=== PATIENT | male | born 1940 | race Caucasian/White ===

== ENCOUNTER 2016-10-03 15:52 | Observation (INO) | payer OTHER ==
[~2016-10-03] VITALS: Ht 172.7 cm; Wt 95.8 kg
[2016-10-03 16:28] LABS: BASO % 0.2 %; BASO ABS # 0.02 K/uL (0-0.2); COMPLETE YES; EOS % 2.5 %; IG% 0.5 %; LYMPH % 10.5 %; LYMPH ABS # 0.88 K/uL (1.2-3.4); MEAN CELL VOLUME 91.7 fL (80-100); MEAN CORPUSCULAR HEMOGLOBIN 30.6 pg (25-34); MEAN CORPUSCULAR HGB CONC 33.4 g/dl (32-36); MEAN PLATELET VOLUME 11.7 fL (7.4-10.4); MONO % 8.7 %; NEUT % 77.6 %; PLATELET COUNT 143 K/uL (130-400)
[2016-10-03 16:39] LABS: INR 1.1 (0.9-1.1); PROTHROMBIN TIME (PATIENT) 11.4 SECONDS (9.0-12.0)
[2016-10-03 16:46] LABS: ALT/SGPT 44 U/L (12-78); BLOOD UREA NITROGEN 17 mg/dl (7-18); BUN/CREATININE RATIO 10.1 (10-20); CALCIUM 9.2 mg/dl (8.5-10.1); CARBON DIOXIDE 25 mmol/L (21-32); CHLORIDE 105 mmol/L (98-107); GLUCOSE 109 mg/dl (70-99); MAGNESIUM 2.3 mg/dl (1.8-2.4); POTASSIUM 4.2 mmol/L (3.5-5.1); SODIUM 140 mmol/L (136-145)
[2016-10-03 16:49] LABS: ALKALINE PHOSPHATASE 83 U/L (45-117); AST/SGOT 30 U/L (15-37); PHOSPHORUS 2.7 mg/dl (2.5-4.9)
--- NOTE | 2016-10-03 16:49 | DIAGNOSTIC IMAGING REPORT ---
CT SCAN OF THE BRAIN WITHOUT IV CONTRAST CLINICAL HISTORY: Syncope. Generalized weakness. COMPARISON STUDY: No priors. TECHNIQUE: Unenhanced axial CT scan of the brain is performed from the vertex to the skull base. The examination is degraded by motion artifact. CT DOSE: 537.48 mGy.cm FINDINGS: Brain parenchyma: There are age-related involutional changes noting moderate patchy subcortical and periventricular microangiopathic change. Chronic lacunar infarcts are present within the basal ganglia bilaterally. There is no hemorrhage, mass effect, or evidence of acute territorial ischemia by CT criteria. Schulz-white matter is preserved. No extra-axial fluid collection is seen. Ventricles, sulci, cisterns: Prominent secondary to involutional change. Intracranial vasculature: There is atherosclerotic calcification of the cavernous carotid and vertebral arteries. Calvarium: The skeletal structures are osteopenic. No depressed calvarial fracture is seen. There are postoperative changes from occipital craniectomy. Sinuses and mastoids: The visualized paranasal sinuses are clear. The mastoid air cells are well pneumatized. Orbits: The bony orbits are grossly intact. IMPRESSION: 1. Senescent changes as above with no hemorrhage, mass effect, or evidence of acute territorial ischemia by CT criteria. 2. There are postoperative changes from suboccipital craniectomy. Electronically signed by: Jhon Suazo M.D. 10/03/2016 4:47 PM Dictated Date/Time: 10/03/2016 4:44 PM
--- NOTE | 2016-10-03 16:56 | DIAGNOSTIC IMAGING REPORT ---
SINGLE VIEW CHEST CLINICAL HISTORY: Generalized weakness. FINDINGS: An AP, portable, upright chest radiograph is obtained. No prior studies are available for comparison at the time of dictation. The examination is degraded by portable technique and patient rotation. The heart is top normal for projection and there is atherosclerotic calcification of the thoracic aorta. The pulmonary vasculature is noncongested. There is elevation right hemidiaphragm and bibasilar atelectasis. No airspace consolidation or pleural effusion is identified. No pneumothorax is seen. The skeletal structures are osteopenic. The bony thorax is grossly intact. IMPRESSION: No acute cardiopulmonary abnormality. Electronically signed by: Jhon Suazo M.D. 10/03/2016 4:54 PM Dictated Date/Time: 10/03/2016 4:54 PM
[2016-10-03] MEDS ORDERED: AMLO-110 PO (17:09)
[2016-10-03] MEDS ORDERED: LSN20 PO (17:09)
[2016-10-03] MEDS ORDERED: ESCI1TAB6 PO (17:09)
[2016-10-03] MEDS ORDERED: MAGIC MOUTHWASH PO (17:09)
[2016-10-03] MEDS ORDERED: DOCU100C31 PO (17:09)
[2016-10-03] MEDS ORDERED: FLM4 PO (17:09)
[2016-10-03] MEDS ORDERED: POLY335019 PO (17:09)
[2016-10-03] MEDS ORDERED: ENOX30IN4 SQ (17:09)
[2016-10-03] MEDS ORDERED: MOMLX PO (17:09)
[2016-10-03] MEDS ORDERED: NYSS5 PO (17:09)
[2016-10-03] MEDS ORDERED: SODIENE PR (17:09)
[2016-10-03] MEDS ORDERED: FAMO20TA11 PO (17:09)
[2016-10-03] MEDS ORDERED: TRAM-10 PO (17:09)
[2016-10-03] MEDS ORDERED: BISA10SU38 PR (17:09)
[2016-10-03] MEDS ORDERED: LABE1TAB28 PO (17:09)
[2016-10-03] MEDS ORDERED: ACET-1311 PO (17:09)
[2016-10-03] MEDS ORDERED: SENN-65 PO (17:09)
[2016-10-03] MEDS ORDERED: NUTR-431 PO (17:09)
[2016-10-03] MEDS ORDERED: ACETAMINOPHEN 325 MG TAB PO PRN (18:00)
[2016-10-03] MEDS ORDERED: ONDANSETRON INJ 2 MG/ML 2 ML VIAL IV PRN (18:00)
[2016-10-03] MEDS ORDERED: DOCUSATE SODIUM/SENNA 50/8.6MG TAB PO PRN (18:15)
[2016-10-03] MEDS ORDERED: TRAMADOL HCL 50 MG TAB PO PRN (18:15)
[2016-10-03] MEDS ORDERED: POLYETHYLENE (MIRALAX) 17 GM PACK PO PRN (18:15)
[2016-10-03] MEDS ORDERED: SOD PHOSPHATE/SOD BIPHOSPHATE ENEMA 132 ML BTL PR PRN (18:15)
[2016-10-03] MEDS ORDERED: BISACODYL 10 MG SUPP PR PRN (18:15)
[2016-10-03] MEDS ORDERED: MAGNESIUM HYDROXIDE SUSP 30 ML UDC PO PRN (18:15)
--- NOTE | 2016-10-03 19:19 | History and Physical ---
History & Physical Date & Time of Service: Oct 03, 2016 at 18:13 Chief Complaint: Syncope Ams Primary Care Physician: No Doctor, Assigned History of Present Illness Source: patient, spouse ( via phone call), clinic records, hospital records This is a 76 year old male with PMH of HTN, CKD, history of DVT and PE, primary hypercoagulable state, prior Coumadin anticoagulation, history of cerebral hemorrhage s/p craniectomy, who presents to the ED from [facility] for unresponsive episode. Patient follows with Beverly [facility]UMAR for primary care. Patient is a poor historian so history obtained from records, [facility] RN, and phone call w/ . Patient was recently hospitalized at [facility] [place] from 09/05-2016 for acute cerebellar hemorrhage in setting of Coumadin anticoagulation. He underwent craniectomy with evacuation of intracerebellar hematoma on 09/05/2016. He was d/c to [facility]. Per Rosey RN at [facility], it was reported to her that this morning on way back from therapy patient was c/o nausea. When patient was sitting on wheelchair when about to be transferred, he became unresponsive, pale, with cyanosis of the lips. Sternal rub was ineffective. At that time his HR was in 40s, RR was 12, and O2 sat was 89% on RA which improved to 98-100% on non-rebreather, and BP was 102/69. The duration of the episode is not known, but on EMS arrival patient was alert. No reported seizure activity. [facility] RN notes that patient has been refusing meals since September 29. The patient does not recall the details of the event. He does report that earlier today he had pressure in substernal area, lightheadedness, nausea, and SOB, which are now resolved. He does not recall further details. He does not recall LOC. He admits to feeling tired. Denies any pain. Per his , since the recent CVA patient has slurred speech, intermittent disorientation, and short and rodent exterminator memory difficulty. She states he initially had swallowing difficulty after the stroke but it resolved. He has not been ambulating much at [facility]. He denies fever, chills, vision change, swallowing difficulty, weakness, numbness, palpitations, vomiting, abdominal pain, diarrhea, urinary changes. Denies history of cardiac disorder, syncope, or seizure. Past Medical/Surgical History Medical Problems: (1) Cerebral hemorrhage Status: Chronic (2) CKD (chronic kidney disease), stage III Status: Chronic (3) History of DVT (deep vein thrombosis) Status: Chronic (4) History of pulmonary embolism Status: Chronic (5) HTN (hypertension) Status: Chronic (6) Hypercoagulable state Status: Chronic Surgical Problems: (1) Decompressive suboccipital craniectomy Status: Resolved (2) H/O hernia repair Status: Chronic (3) s/p filter placement Status: Chronic (4) Status post craniectomy Permanent Comment: 09/05/2016- suboccipital craniectomy with evacuation of intracerebellar hematoma; [facility] Status: Chronic Family History Blood clots FATHER Social History Smoking Status: Never Smoker Alcohol Use: none Marital Status: Housing status: other ([facility]) Allergies Coded Allergies: No Known Allergies (Unverified , 10/03/16) Home Medications Scheduled Amlodipine (Norvasc), 5 MG PO QAM Docusate Sodium (Docusate Sodium), 100 MG PO BID Enoxaparin (Lovenox), 30 MG SQ BID Escitalopram Oxalate (Lexapro), 5 MG PO QAM Famotidine (Pepcid), 20 MG PO QAM Labetalol (Normodyne), 200 MG PO TID Lisinopril (Lisinopril), 20 MG PO BID Nystatin (Nystatin), 5 ML PO QID Tamsulosin HCl (Tamsulosin HCl), 0.4 MG PO QPM [Magic Mouthwash], 5 ML PO QID Scheduled PRN Acetaminophen (Tylenol), 650 MG PO Q4 PRN for MILD PAIN Bisacodyl (Dulcolax), 1 SUPP MD DAILY PRN for NO BM FOR 2 DAYS Magnesium Hydroxide (Milk of Magnesia), 30 ML PO DAILY PRN for NO BM FOR 1 DAY Polyethylene Glycol 3350 (Miralax), 17 GM PO DAILY PRN for Constipation Senna/Docusate Sod (Senokot S), 1 TAB PO DAILY PRN for Constipation Sodium Phosphate/Biphosphate (Fleet Enema), 1 EA MD DAILY PRN for NO BM FOR 3 DAYS Tramadol (Ultram), 50 MG PO Q6H PRN for Pain Review of Systems Constitutional: + fatigue, No chills, No fever Eyes: No worsening of vision ENT: + problem reported (initial swallowing difficulty after CVA- resolved. being treated for oral thrush), No nasal symptoms Respiratory: No cough Cardiovascular: + chest pain (resolved) Abdomen: + nausea (resolved), No diarrhea, No pain, No vomiting Musculoskeletal: No muscle pain Genitourinary - Male: No dysuria, No urinary frequency Neurologic: + memory loss, + problem reported (slurred speech s/p recent stroke ), No numbness/tingling, No weakness Physical Exam Vital Signs Date Time Temp Pulse Resp B/P Pulse Ox O2 Delivery O2 Flow Rate FiO2 10/03/16 16:57 58 18 132/72 97 Room Air 10/03/16 16:07 66 10/03/16 16:01 37.0 57 18 129/70 96 Room Air 10/03/16 16:01 96 Room Air 10/03/16 16:01 57 129/70 65 115/81 72 119/80 General Appearance: WD/WN, no apparent distress, + pertinent finding (alert elderly male, lying in bed, no distress) Head: normocephalic, atraumatic Eyes: normal inspection, PERRL, EOMI ENT: hearing grossly normal, pharynx normal, + pertinent finding (no sign of thrush) Neck: supple, trachea midline Respiratory/Chest: lungs clear, normal breath sounds, no respiratory distress Cardiovascular: regular rate, rhythm, no murmur Abdomen/GI: normal bowel sounds, non tender, soft Extremities/Musculoskelatal: no calf tenderness, no pedal edema 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, no motor/sensory deficits, alert, normal mood/affect, + pertinent finding (oriented to person, unable to state the date, states "either [place] or [facility]" for location) Skin: normal color, warm/dry, + pertinent finding (suboccipital craniectomy incision healing well) Diagnostics Laboratory Results Results Past 24 Hours Test 10/03/16 16:10 10/03/16 16:18 Range/Units White Blood Count 8.40 4.8-10.8 K/uL Red Blood Count 4.80 4.7-6.1 M/uL Hemoglobin 14.7 14.0-18.0 g/dL Hematocrit 44.0 42-52 % Mean Corpuscular Volume 91.7 80-100 fL Mean Corpuscular Hemoglobin 30.6 25-34 pg Mean Corpuscular Hemoglobin Concent 33.4 32-36 g/dl Platelet Count 143 130-400 K/uL Mean Platelet Volume 11.7 7.4-10.4 fL Neutrophils (%) (Auto) 77.6 % Lymphocytes (%) (Auto) 10.5 % Monocytes (%) (Auto) 8.7 % Eosinophils (%) (Auto) 2.5 % Basophils (%) (Auto) 0.2 % Neutrophils # (Auto) 6.52 1.4-6.5 K/uL Lymphocytes # (Auto) 0.88 1.2-3.4 K/uL Monocytes # (Auto) 0.73 0.11-0.59 K/uL Eosinophils # (Auto) 0.21 0-0.5 K/uL Basophils # (Auto) 0.02 0-0.2 K/uL RDW Standard Deviation 51.2 36.4-46.3 fL RDW Coefficient of Variation 15.2 11.5-14.5 % Immature Granulocyte % (Auto) 0.5 % Immature Granulocyte # (Auto) 0.04 0.00-0.02 K/uL Prothrombin Time 11.4 9.0-12.0 SECONDS Prothromb Time International Ratio 1.1 0.9-1.1 Activated Partial Thromboplast Time 26.6 21.0-31.0 SECONDS Partial Thromboplastin Ratio 1.0 Sodium Level 140 136-145 mmol/L Potassium Level 4.2 3.5-5.1 mmol/L Chloride Level 105 98-107 mmol/L Carbon Dioxide Level 25 21-32 mmol/L Anion Gap 10.0 3-11 mmol/L Blood Urea Nitrogen 17 7-18 mg/dl Creatinine 1.70 0.60-1.40 mg/dl Est Creatinine Clear Calc Drug Dose 42.0 ml/min Estimated GFR () 44.4 Estimated GFR (Non- 38.3 BUN/Creatinine Ratio 10.1 10-20 Random Glucose 109 70-99 mg/dl Calcium Level 9.2 8.5-10.1 mg/dl Phosphorus Level 2.7 2.5-4.9 mg/dl Magnesium Level 2.3 1.8-2.4 mg/dl Total Bilirubin 1.5 0.2-1 mg/dl Direct Bilirubin 0.4 0-0.2 mg/dl Aspartate Amino Transf (AST/SGOT) 30 15-37 U/L Alanine Aminotransferase (ALT/SGPT) 44 12-78 U/L Alkaline Phosphatase 83 45-117 U/L Total Creatine Kinase 41 39-308 U/L Creatine Kinase MB 0.8 0.5-3.6 ng/ml Creatine Kinase MB Ratio 2.0 0-3.0 Troponin I < 0.015 0-0.045 ng/ml Total Protein 7.4 6.4-8.2 gm/dl Albumin 3.4 3.4-5.0 gm/dl Lipase 239 73-393 U/L Diagnostic Radiology CT SCAN OF THE BRAIN WITHOUT IV CONTRAST CLINICAL HISTORY: Syncope. Generalized weakness. COMPARISON STUDY: No priors. TECHNIQUE: Unenhanced axial CT scan of the brain is performed from the vertex to the skull base. The examination is degraded by motion artifact. CT DOSE: 537.48 mGy.cm FINDINGS: Brain parenchyma: There are age-related involutional changes noting moderate patchy subcortical and periventricular microangiopathic change. Chronic lacunar infarcts are present within the basal ganglia bilaterally. There is no hemorrhage, mass effect, or evidence of acute territorial ischemia by CT criteria. Schulz-white matter is preserved. No extra-axial fluid collection is seen. Ventricles, sulci, cisterns: Prominent secondary to involutional change. Intracranial vasculature: There is atherosclerotic calcification of the cavernous carotid and vertebral arteries. Calvarium: The skeletal structures are osteopenic. No depressed calvarial fracture is seen. There are postoperative changes from occipital craniectomy. Sinuses and mastoids: The visualized paranasal sinuses are clear. The mastoid air cells are well pneumatized. Orbits: The bony orbits are grossly intact. IMPRESSION: 1. Senescent changes as above with no hemorrhage, mass effect, or evidence of acute territorial ischemia by CT criteria. 2. There are postoperative changes from suboccipital craniectomy. SINGLE VIEW CHEST CLINICAL HISTORY: Generalized weakness. FINDINGS: An AP, portable, upright chest radiograph is obtained. No prior studies are available for comparison at the time of dictation. The examination is degraded by portable technique and patient rotation. The heart is top normal for projection and there is atherosclerotic calcification of the thoracic aorta. The pulmonary vasculature is noncongested. There is elevation right hemidiaphragm and bibasilar atelectasis. No airspace consolidation or pleural effusion is identified. No pneumothorax is seen. The skeletal structures are osteopenic. The bony thorax is grossly intact. IMPRESSION: No acute cardiopulmonary abnormality. EKG sinus bradycardia, rate 55, no ST abnormality Impression Assessment and Plan SYNCOPE Differential includes vasovagal, bradycardia related, seizure, orthostatic hypotension HR was 40s at time of event, now in sinus bradycardia rate 50s Orthostatic testing in ER positive for increase in heart rate CT head- no acute intracranial findings, + postop changes Check echo, carotid doppler Hold labetalol due to bradycardia Will treat with IVF's given +orthostasis and recent poor PO intake Neuro checks Consult neurology and cardiology HISTORY OF CEREBRAL HEMORRHAGE S/p suboccipital craniectomy with evacuation of intracerebellar hematoma 2016 CT head noted above HISTORY OF DVT/ PE / HYPERCOAGULABLE STATE Continue Lovenox 30 mg SQ BID HYPERTENSION BP is stable Hold labetalol and lisinopril for now Monitor BP CKD STAGE III Cr is currently 1.7 ( baseline 1.5-1.8) Monitor renal function CODE STATUS Full code per my discussion with patient's via phone call. States would not want prolonged life support. DISPOSITION Obs to telemetry Currently at [facility], PT, OT requested Patient seen in collaboration with Dr. Hung. Please see his addendum. ATTENDING ADDENDUM care coordinated with SARA Nair please refer to her notes for full details, I agree with her notes patient seen and examined, records reviewed by myself as well on exam, patient seen resting in bed, comfortable, not in distress denies headache, dizziness, nausea, pain no other symptoms VS noted and reviewed oriented x 1 , not in distress, speaks in sentences with no effort nor accessory muscle use patient declined physician exam, stated " i am fine", was irritated patient asked again but declined again cea 1.7 CT head: no acute process EKG sinus bradycardia ASSESSMENT/PLAN> SYNCOPE, POSSIBLE ETIOLOGIES INCLUDE: ORTHOSTASIS, VASOVAGAL REFLEX, BRADYCARDIA ? - hold BP meds except Amlodipine monitor Orthostatic VS - check echo monitor in Tele RECENT CEREBRAL HEMORRHAGE S/P SURGERY - CT head: no acute process Lovenox 30mg BID resumed for history of DVT/PE other diagnoses and plan of care as per SARA Nair's notes Ramakrishna Hung MD VTE Prophylaxis VTE Risk Assessment Done? Y/N: Yes Risk Level: High
[2016-10-03 19:27] VITALS: BP 152/84; PULSE 70; TEMP 37; O2SAT 92; Ht 172.7 cm; Wt 95.8 kg
[2016-10-03] MEDS ORDERED: LISINOPRIL 20 MG TAB PO SCH (21:00)
[2016-10-03] MEDS ORDERED: MAGIC MOUTHWASH PO SCH (21:00)
[2016-10-03] MEDS ORDERED: IV FLUIDS COMPLETED PRN (21:30)
[2016-10-03] MEDS: D5W AND NSS 1,000 ML IV SCH (21:50)
[2016-10-03] MEDS: NYSTATIN SUSP 500,000 U/5 ML UDC PO SCH (21:51)
[2016-10-03] MEDS: DOCUSATE SODIUM 100 MG CAP PO SCH (21:51)
[2016-10-03] MEDS: TAMSULOSIN HCL 0.4 MG CAP PO SCH (21:51)
[2016-10-03] MEDS: DEXAMETHASONE CONC SOLN 3.75 MG, NYSTATIN SUSP 30 ML, DiphenhydrAMINE HCL SYRUP 300 MG,... PO SCH ×5 (21:52)
[2016-10-03] MEDS: ENOXAPARIN 30 MG/0.3 ML SYR SQ SCH (21:52)
[2016-10-04] VITALS (9 sets, daily range): BP systolic 137–182; BP diastolic 81–91; PULSE 54–73; TEMP 36.4–36.9; O2SAT 95–98
--- NOTE | 2016-10-04 00:12 | EMERGENCY ROOM VISIT NOTE ---
History Report prepared by Mayra: Ander Romero Under the Supervision of: Dr. Jeovany Grullon M.D. First contact with patient: 16:06 Stated Complaint: SYNCOPE AMS History of Present Illness The patient is a 76 year old male who presents to the Emergency Room with complaints of a sudden syncopal episode beginning just prior to arrival. As per nurse, the patient associates mild confusion with today's symptoms. She states the patient was doing physical therapy, and he passed out after sitting back in his chair. The patient denies any current pain or complaints. He denies nausea and vomiting. The patient notes he has a history of a brain bleed due to a stroke a few months ago but does not remember which hospital he was evaluated at. Further information from the nursing staff revealed the patient was on Coumadin and presented to [place] in the beginning of September with a head bleed. The patient was transferred to [place] and had a decompressive suboccipital craniectomy. He did well after, was on blood pressure management, and then transferred to [facility] on September 13. The patient was doing well since until today, when he had a syncopal type event. Source of History: patient Onset: just prior to arrival Position: other (global) Quality: other (syncope) Timing: other (sudden) Associated Symptoms: No nausea, No vomiting Note: Associated symptoms: mild confusion. Review of Systems See HPI for pertinent positives & negatives. A total of 10 systems reviewed and were otherwise negative. Past Medical & Surgical Medical Problems: (1) Cerebral hemorrhage (2) CKD (chronic kidney disease), stage III (3) History of DVT (deep vein thrombosis) (4) History of pulmonary embolism (5) HTN (hypertension) (6) Hypercoagulable state (7) Syncope Surgical Problems: (1) Decompressive suboccipital craniectomy (2) H/O hernia repair (3) s/p filter placement (4) Status post craniectomy Family History Patient reports no known family medical history. Social History Marital Status: Occupation Status: retired Current/Historical Medications Scheduled Amlodipine (Norvasc), 5 MG PO QAM Docusate Sodium (Docusate Sodium), 100 MG PO BID Enoxaparin (Lovenox), 30 MG SQ BID Escitalopram Oxalate (Lexapro), 5 MG PO QAM Famotidine (Pepcid), 20 MG PO QAM Labetalol (Normodyne), 200 MG PO TID Lisinopril (Lisinopril), 20 MG PO BID Nystatin (Nystatin), 5 ML PO QID Tamsulosin HCl (Tamsulosin HCl), 0.4 MG PO QPM [Magic Mouthwash], 5 ML PO QID Scheduled PRN Acetaminophen (Tylenol), 650 MG PO Q4 PRN for MILD PAIN Bisacodyl (Dulcolax), 1 SUPP AK DAILY PRN for NO BM FOR 2 DAYS Magnesium Hydroxide (Milk of Magnesia), 30 ML PO DAILY PRN for NO BM FOR 1 DAY Polyethylene Glycol 3350 (Miralax), 17 GM PO DAILY PRN for Constipation Senna/Docusate Sod (Senokot S), 1 TAB PO DAILY PRN for Constipation Sodium Phosphate/Biphosphate (Fleet Enema), 1 EA AK DAILY PRN for NO BM FOR 3 DAYS Tramadol (Ultram), 50 MG PO Q6H PRN for Pain Allergies Coded Allergies: No Known Allergies (Unverified , 10/03/16) Physical Exam Vital Signs Date Time Temp Pulse Resp B/P Pulse Ox O2 Delivery O2 Flow Rate FiO2 10/03/16 17:52 59 20 95 10/03/16 17:22 55 15 95 10/03/16 16:57 58 18 132/72 97 Room Air 10/03/16 16:57 132/72 10/03/16 16:52 57 15 95 10/03/16 16:22 57 12 95 10/03/16 16:07 66 10/03/16 16:04 119/80 10/03/16 16:03 115/81 10/03/16 16:01 37.0 57 18 129/70 96 Room Air 10/03/16 16:01 96 Room Air 10/03/16 16:01 57 129/70 65 115/81 72 119/80 10/03/16 15:55 129/70 Physical Exam GENERAL: Patient is elderly appearing,no acute distress, and mildly confused. HEENT: Well healing cervical/occipital scar. No acute trauma, normocephalic atraumatic, mucous membranes moist, no nasal congestion, no scleral icterus. NECK: No stridor, no adenopathy, no meningismus, trachea is midline. LUNGS: No dyspnea. Clear to auscultation and equal bilaterally. No wheeze, no rhonchi. HEART: Regular rate and rhythm. No murmurs, rubs, gallops appreciated. ABDOMEN: Soft, nontender, bowel sounds positive, no masses appreciated, no peritonitis. BACK: No midline tenderness, no CVA tenderness EXTREMITIES: Normal motion all extremities, no cyanosis, no edema. NEUROLOGIC: Aware of place, however does not remember what hospital he has been at recently. No acute motor or sensory deficits, no focal weakness, cranial nerves grossly intact. SKIN: No rash, no jaundice, no diaphoresis. Medical Decision & Procedures ER Provider Diagnostic Interpretation: X ray results and stated below per my interpretation and radiologist interpretation. Other radiology results and stated below per my review and radiologist interpretation: SINGLE VIEW CHEST CLINICAL HISTORY: Generalized weakness. FINDINGS: An AP, portable, upright chest radiograph is obtained. No prior studies are available for comparison at the time of dictation. The examination is degraded by portable technique and patient rotation. The heart is top normal for projection and there is atherosclerotic calcification of the thoracic aorta. The pulmonary vasculature is noncongested. There is elevation right hemidiaphragm and bibasilar atelectasis. No airspace consolidation or pleural effusion is identified. No pneumothorax is seen. The skeletal structures are osteopenic. The bony thorax is grossly intact. IMPRESSION: No acute cardiopulmonary abnormality. Electronically signed by: Jhon Suazo M.D. 10/03/2016 4:[address] SCAN OF THE BRAIN WITHOUT IV CONTRAST CLINICAL HISTORY: Syncope. Generalized weakness. COMPARISON STUDY: No priors. TECHNIQUE: Unenhanced axial CT scan of the brain is performed from the vertex to the skull base. The examination is degraded by motion artifact. CT DOSE: 537.48 mGy.cm FINDINGS: Brain parenchyma: There are age-related involutional changes noting moderate patchy subcortical and periventricular microangiopathic change. Chronic lacunar infarcts are present within the basal ganglia bilaterally. There is no hemorrhage, mass effect, or evidence of acute territorial ischemia by CT criteria. Schulz-white matter is preserved. No extra-axial fluid collection is seen. Ventricles, sulci, cisterns: Prominent secondary to involutional change. Intracranial vasculature: There is atherosclerotic calcification of the cavernous carotid and vertebral arteries. Calvarium: The skeletal structures are osteopenic. No depressed calvarial fracture is seen. There are postoperative changes from occipital craniectomy. Sinuses and mastoids: The visualized paranasal sinuses are clear. The mastoid air cells are well pneumatized. Orbits: The bony orbits are grossly intact. IMPRESSION: 1. Senescent changes as above with no hemorrhage, mass effect, or evidence of acute territorial ischemia by CT criteria. 2. There are postoperative changes from suboccipital craniectomy. Electronically signed by: Jhon Suazo M.D. 10/03/2016 4:47 PM Laboratory Results 10/03/16 16:18 Red Blood Count 4.80, Mean Corpuscular Volume 91.7, Mean Corpuscular Hemoglobin 30.6, Mean Corpuscular Hemoglobin Concent 33.4, Mean Platelet Volume 11.7, Neutrophils (%) (Auto) 77.6, Lymphocytes (%) (Auto) 10.5, Monocytes (%) (Auto) 8.7, Eosinophils (%) (Auto) 2.5, Basophils (%) (Auto) 0.2, Neutrophils # (Auto) 6.52, Lymphocytes # (Auto) 0.88, Monocytes # (Auto) 0.73, Eosinophils # (Auto) 0.21, Basophils # (Auto) 0.02 10/03/16 16:18 Test 10/03/16 16:10 10/03/16 16:18 White Blood Count 8.40 K/uL (4.8-10.8) Red Blood Count 4.80 M/uL (4.7-6.1) Hemoglobin 14.7 g/dL (14.0-18.0) Hematocrit 44.0 % (42-52) Mean Corpuscular Volume 91.7 fL (80-100) Mean Corpuscular Hemoglobin 30.6 pg (25-34) Mean Corpuscular Hemoglobin Concent 33.4 g/dl (32-36) Platelet Count 143 K/uL (130-400) Mean Platelet Volume 11.7 fL (7.4-10.4) Neutrophils (%) (Auto) 77.6 % Lymphocytes (%) (Auto) 10.5 % Monocytes (%) (Auto) 8.7 % Eosinophils (%) (Auto) 2.5 % Basophils (%) (Auto) 0.2 % Neutrophils # (Auto) 6.52 K/uL (1.4-6.5) Lymphocytes # (Auto) 0.88 K/uL (1.2-3.4) Monocytes # (Auto) 0.73 K/uL (0.11-0.59) Eosinophils # (Auto) 0.21 K/uL (0-0.5) Basophils # (Auto) 0.02 K/uL (0-0.2) RDW Standard Deviation 51.2 fL (36.4-46.3) RDW Coefficient of Variation 15.2 % (11.5-14.5) Immature Granulocyte % (Auto) 0.5 % Immature Granulocyte # (Auto) 0.04 K/uL (0.00-0.02) Prothrombin Time 11.4 SECONDS (9.0-12.0) Prothromb Time International Ratio 1.1 (0.9-1.1) Activated Partial Thromboplast Time 26.6 SECONDS (21.0-31.0) Partial Thromboplastin Ratio 1.0 Anion Gap 10.0 mmol/L (3-11) Est Creatinine Clear Calc Drug Dose 42.0 ml/min Estimated GFR () 44.4 Estimated GFR (Non- 38.3 BUN/Creatinine Ratio 10.1 (10-20) Calcium Level 9.2 mg/dl (8.5-10.1) Phosphorus Level 2.7 mg/dl (2.5-4.9) Magnesium Level 2.3 mg/dl (1.8-2.4) Total Bilirubin 1.5 mg/dl (0.2-1) Direct Bilirubin 0.4 mg/dl (0-0.2) Aspartate Amino Transf (AST/SGOT) 30 U/L (15-37) Alanine Aminotransferase (ALT/SGPT) 44 U/L (12-78) Alkaline Phosphatase 83 U/L (45-117) Total Creatine Kinase 41 U/L (39-308) Creatine Kinase MB 0.8 ng/ml (0.5-3.6) Creatine Kinase MB Ratio 2.0 (0-3.0) Troponin I < 0.015 ng/ml (0-0.045) Total Protein 7.4 gm/dl (6.4-8.2) Albumin 3.4 gm/dl (3.4-5.0) Lipase 239 U/L (73-393) Laboratory results as reviewed by me. ECG Indication: syncope Rate (beats per minute): 55 Rhythm: sinus bradycardia Findings: no acute ischemic change, no ectopy, other (poor baseline) ED Course 1608: The patient was evaluated in room A3. A complete history and physical exam was performed. 170: I spoke to Sahron Nair PA-C, [facility] (Hospitalist) about the patient's case, and she will follow the patient for further evaluation. 184: Reevaluated the patient and updated him and his family. Medical Decision Differential: Sepsis, Infectious (UTI/Pneumonia/Meningitis/etc), Metabolic/ Electrolyte Abnormality, Cardiac, Hepatic, Endocrine, Toxicologic, Neurologic, amongst other pathologies entertained. 76 yr old male with recent ICH s/p NSRG who has been are rehab last 2 weeks when he had a syncopal event this afternoon followed by prolonged period of confusion. No reported seizure activity. Currently he is back to his reported baseline and in no distress. CT head without issues and labs unremarkable. No evidence ACS currently and patient in no distress. Unclear etiology of this episode though given history and his PMH will plan on monitoring overnight. Stable without evidence of sepsis nor meningitis at this time. Consults Time Called: 1703 Consulting Physician: Sharon Nair PA-C, [facility] (Hospitalist) Returned Call: 170 I spoke to Sharon Nair PA-C, [facility] (Hospitalist) about the patient's case, and she will follow the patient for further evaluation. Impression Primary Impression: Syncope Additional Impression: Altered mental status Scribe Attestation The scribe's documentation has been prepared under my direction and personally reviewed by me in its entirety. I confirm that the note above accurately reflects all work, treatment, procedures, and medical decision making performed by me. Departure Information Dispostion Being Evaluated By Hospitalist (Sharon Nair PA-C, [facility] (Hospitalist)) Problem Qualifiers Primary Impression: Syncope Syncope type: unspecified Qualified Codes: R55 - Syncope and collapse Additional Impression: Altered mental status Altered mental status type: transient alteration of awareness Qualified Codes : R40.4 - Transient alteration of awareness
[2016-10-04] MEDS: D5W AND NSS 1,000 ML IV SCH (05:11)
--- NOTE | 2016-10-04 06:39 | DIAGNOSTIC IMAGING REPORT ---
BILATERAL CAROTID DOPPLER STUDY HISTORY: Carotid Doppler. Mental status change. R/O carotid stenosis COMPARISON: None. TECHNIQUE: Real-time, grayscale, and color Doppler sonography of the carotid arteries was performed. Imaging reviewed in the transverse and longitudinal planes. All measurements were calculated based on NASCET criteria. FINDINGS: Antegrade flow is seen in the bilateral vertebral arteries. The brachial pressures are hemodynamically similar. Mild plaque formation bilaterally The peak systolic velocity within the right ICA is 53. The right systolic ratio is 0.7. The peak systolic velocity within the left ICA is 57. The left systolic ratio is 0.8. IMPRESSION: No hemodynamically significant stenosis seen within the carotid arteries. Mild plaque formation Electronically signed by: Barry Abbasi M.D. 10/04/2016 6:38 AM Dictated Date/Time: 10/04/2016 6:36 AM
[2016-10-04 06:42] LABS: MANUAL MICROSCOPIC REQUIRED? NO; REVIEW REQ? NO; URINE APPEARANCE CLEAR (CLEAR); URINE BILIRUBIN NEG (NEG); URINE COLOR DK YELLOW; URINE NITRITE NEG (NEG); URINE PH 5.5 (4.5-7.5); URINE SPECIFIC GRAVITY 1.021 (1.000-1.030); UROBILINOGEN NEG (NEG); ZZUR CULT IF INDIC CLEAN CATCH NO
[2016-10-04 07:41] LABS: HEMATOCRIT 40.3 % (42-52); MEAN CORPUSCULAR HEMOGLOBIN 29.5 pg (25-34); MEAN CORPUSCULAR HGB CONC 32.8 g/dl (32-36); MEAN PLATELET VOLUME 11.6 fL (7.4-10.4); PLATELET COUNT 123 K/uL (130-400); RED BLOOD COUNT 4.48 M/uL (4.7-6.1); WHITE BLOOD COUNT 6.44 K/uL (4.8-10.8)
[2016-10-04 08:11] LABS: BUN/CREATININE RATIO 10.1 (10-20); CALCIUM 8.9 mg/dl (8.5-10.1); CREATININE 1.4 mg/dl (0.60-1.40); MAGNESIUM 2.3 mg/dl (1.8-2.4); POTASSIUM 3.6 mmol/L (3.5-5.1)
[2016-10-04] MEDS: FAMOTIDINE 20 MG TAB PO SCH (09:35)
[2016-10-04] MEDS: NYSTATIN SUSP 500,000 U/5 ML UDC PO SCH ×4 (09:35→20:36)
[2016-10-04] MEDS: AMLODIPINE BESYLATE 5 MG TAB PO SCH (09:35)
[2016-10-04] MEDS: DOCUSATE SODIUM 100 MG CAP PO SCH ×2 (09:36→20:36)
[2016-10-04] MEDS: ENOXAPARIN 30 MG/0.3 ML SYR SQ SCH ×2 (09:36→20:37)
[2016-10-04] MEDS: DEXAMETHASONE CONC SOLN 3.75 MG, NYSTATIN SUSP 30 ML, DiphenhydrAMINE HCL SYRUP 300 MG,... PO SCH ×20 (09:36→20:37)
[2016-10-04] MEDS: ESCITALOPRAM OXALATE 10 MG TAB PO SCH (09:36)
--- NOTE | 2016-10-04 10:50 | Hospitalist Progress Note ---
Hospitalist Progress Note Date of Service Oct 04, 2016. (Jesica Garcia .STACY) Subjective Patient seen and examined. Sitting up in bed eating breakfast. No chest pain or shortness of breath. Reports lightheadedness which he says is chronic. No further syncopal events. Denies nausea and abdominal pain. (Jesica Garcia .STACY) Pt was seen and examined by me. Agree with Jesica KUMAR exam, plan and assessment. Pt said that he feels fine. denies any chest pain. syncopal episode was mostly due to bradycardia. cardiology on board. CT scan and carotid doppler were negative. continue monitor in telemetry. (Elizabeth Gauthier M.D.) Objective Vital Signs Date Time Temp Pulse Resp B/P Pulse Ox O2 Delivery O2 Flow Rate FiO2 10/04/16 07:57 36.4 54 12 165/83 98 Room Air 10/04/16 04:30 Room Air 10/04/16 04:00 36.8 73 18 137/82 97 Room Air 10/04/16 00:00 Room Air 10/04/16 00:00 36.9 55 18 142/83 97 Room Air 10/03/16 19:27 37.0 70 19 152/84 92 Room Air 10/03/16 18:52 61 15 94 10/03/16 18:22 55 14 96 10/03/16 18:08 110/76 10/03/16 18:08 56 16 110/76 95 Room Air 10/03/16 17:52 59 20 95 10/03/16 17:22 55 15 95 10/03/16 16:57 58 18 132/72 97 Room Air 10/03/16 16:57 132/72 10/03/16 16:52 57 15 95 10/03/16 16:22 57 12 95 10/03/16 16:07 66 10/03/16 16:04 119/80 10/03/16 16:03 115/81 10/03/16 16:01 37.0 57 18 129/70 96 Room Air 10/03/16 16:01 96 Room Air 10/03/16 16:01 57 129/70 65 115/81 72 119/80 10/03/16 15:55 129/70 (Jesica Garcia CRNP) Physical Exam General Appearance: no apparent distress Eyes: normal inspection ENT: hearing grossly normal Neck: supple, no JVD Respiratory/Chest: lungs clear, normal breath sounds, no respiratory distress Cardiovascular: regular rate, rhythm, no edema Abdomen: normal bowel sounds, non tender, soft Neurologic/Psychiatric: no motor/sensory deficits, alert, + pertinent finding ( disoriented to place and situation) Skin: normal color, warm/dry (Jesica Garcia ., ADJUSTER LEADER) Laboratory Results Last 24 Hours Test 10/03/16 16:18 10/04/16 06:21 10/04/16 07:25 White Blood Count 8.40 K/uL 6.44 K/uL Red Blood Count 4.80 M/uL 4.48 M/uL Hemoglobin 14.7 g/dL 13.2 g/dL Hematocrit 44.0 % 40.3 % Mean Corpuscular Volume 91.7 fL 90.0 fL Mean Corpuscular Hemoglobin 30.6 pg 29.5 pg Mean Corpuscular Hemoglobin Concent 33.4 g/dl 32.8 g/dl Platelet Count 143 K/uL 123 K/uL Mean Platelet Volume 11.7 fL 11.6 fL Neutrophils (%) (Auto) 77.6 % Lymphocytes (%) (Auto) 10.5 % Monocytes (%) (Auto) 8.7 % Eosinophils (%) (Auto) 2.5 % Basophils (%) (Auto) 0.2 % Neutrophils # (Auto) 6.52 K/uL Lymphocytes # (Auto) 0.88 K/uL Monocytes # (Auto) 0.73 K/uL Eosinophils # (Auto) 0.21 K/uL Basophils # (Auto) 0.02 K/uL RDW Standard Deviation 51.2 fL 49.3 fL RDW Coefficient of Variation 15.2 % 15.0 % Immature Granulocyte % (Auto) 0.5 % Immature Granulocyte # (Auto) 0.04 K/uL Prothrombin Time 11.4 SECONDS Prothromb Time International Ratio 1.1 Activated Partial Thromboplast Time 26.6 SECONDS Partial Thromboplastin Ratio 1.0 Sodium Level 140 mmol/L 142 mmol/L Potassium Level 4.2 mmol/L 3.6 mmol/L Chloride Level 105 mmol/L 109 mmol/L Carbon Dioxide Level 25 mmol/L 25 mmol/L Anion Gap 10.0 mmol/L 8.0 mmol/L Blood Urea Nitrogen 17 mg/dl 14 mg/dl Creatinine 1.70 mg/dl 1.40 mg/dl Est Creatinine Clear Calc Drug Dose 42.0 ml/min 50.4 ml/min Estimated GFR () 44.4 56.2 Estimated GFR (Non- 38.3 48.5 BUN/Creatinine Ratio 10.1 10.1 Random Glucose 109 mg/dl 119 mg/dl Calcium Level 9.2 mg/dl 8.9 mg/dl Phosphorus Level 2.7 mg/dl Magnesium Level 2.3 mg/dl 2.3 mg/dl Total Bilirubin 1.5 mg/dl Direct Bilirubin 0.4 mg/dl Aspartate Amino Transf (AST/SGOT) 30 U/L Alanine Aminotransferase (ALT/SGPT) 44 U/L Alkaline Phosphatase 83 U/L Total Creatine Kinase 41 U/L Creatine Kinase MB 0.8 ng/ml Creatine Kinase MB Ratio 2.0 Troponin I < 0.015 ng/ml < 0.015 ng/ml Total Protein 7.4 gm/dl Albumin 3.4 gm/dl Lipase 239 U/L Urine Color DK YELLOW Urine Appearance CLEAR Urine pH 5.5 Urine Specific Arnold 1.021 Urine Protein NEG Urine Glucose (UA) NEG Urine Ketones TRACE Urine Occult Blood NEG Urine Nitrite NEG Urine Bilirubin NEG Urine Urobilinogen NEG Urine Leukocyte Esterase NEG Urine WBC (Auto) 1-5 /hpf Urine RBC (Auto) 0-4 /hpf Urine Hyaline Casts (Auto) 1-5 /lpf Urine Epithelial Cells (Auto) 10-20 /lpf Urine Bacteria (Auto) NEG (Jesica Garcia ., STACY) Assessment and Plan SYNCOPE - admitted to tele - consider vasovagal vs arrhythmia vs orthostasis due to poor PO intake [facility] - patient's HR was in the 40s at the time of the event; HR has remained > 50 while hospitalized - orthostatic BPs negative - will d/c IVF today - CT head negative for acute findings - no stenosis on carotid doppler - holding labetalol due to intermittent bradycardia - neuro and cardio consults placed HISTORY OF CEREBRAL HEMORRHAGE - 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 - continue Lovenox 30 mg SQ BID - full anticoagulation on hold due to recent cerebral hemorrhage HYPERTENSION - lisinopril and labetalol held on admission, amlodipine continued - BP 165/83 this AM, will resume lisinopril today CKD STAGE III - baseline creat 1.5-1.8 - 1.4 today - continue to monitor renal function, avoid nephrotoxic agents when able CODE STATUS - Full code DISPOSITION - pending - currently at [facility] - PT/OT (Jesica Garcia ., STACY)
--- NOTE | 2016-10-04 11:50 | CARDIOLOGY CONSULTATION ---
DATE OF CONSULTATION: 10/04/2016 CONSULTATION REQUESTED BY: Sharon Nair PA-C. REASON FOR CONSULTATION: Syncope. HISTORY OF PRESENT ILLNESS: Mr. Arguello is a very pleasant 76-year-old gentleman, who is only able to provide a limited medical history. He presented to [facility] on 10/03/2016 from [facility] with a report of syncope. The patient states he does not know what happened. He states that he was feeling fine the next thing he knew there was a bunch of people standing over him. He does not remember the event or the period leading up to or immediately following the event. Currently, he states he feels fine. Upon further questioning, he admits that he has been having lightheadedness ever since his recent craniotomy upon standing only. It does not occur at rest. It does make him significantly lightheaded and he does get weak. His legs start to give out under him, but he denies ever syncopizing before. Reportedly from [facility] the patient has been refusing physical therapy. He has been refusing to get out of bed and he has not eaten since September 29. When the patient was questioned about this, he states he just did not like the food. Otherwise, he denies any chest pain, shortness of breath, palpitations or any previous cardiac history. PAST SURGICAL HISTORY: 1. Recent craniotomy with decompression of a hemorrhagic CVA. 2. Hernia repair. 3. IVC filter placement. MEDICAL ILLNESSES: 1. Cerebral hemorrhage. 2. Stage III chronic kidney disease. 3. History of DVT. 4. History of PE. 5. Hypertension. 6. Questionable hypercoagulable state. FAMILY HISTORY: Noncontributory. SOCIAL HISTORY: The patient denies any alcohol, tobacco or recreational drug use. He is . He currently resides at [facility]. ALLERGIES: No known drug allergies. MEDICATIONS AN OUTPATIENT: 1. Amlodipine 5 mg daily. 2. Labetalol 200 mg t.i.d. 3. Lisinopril 20 mg b.i.d. 4. Lovenox 30 mg subQ b.i.d. 5. Lexapro daily. 6. Colace b.i.d. REVIEW OF SYSTEMS: As per HPI, all other review of systems reviewed and negative at this time. PHYSICAL EXAMINATION: VITALS: Temperature 36.4, pulse 54, respiratory rate 12, blood pressure 165/83. GENERAL: Awake, alert, oriented to person, place and time, but again can only provide a limited history. HEENT: Normocephalic, atraumatic with a posterior occipital incision, well healed. Poor dentition. Extraocular muscles intact. Anicteric sclerae. Moist mucous membranes. NECK: No JVD, no bruit. CARDIOVASCULAR: Regular, but distant. Unable to appreciate any murmurs, rubs or gallops. PULMONARY: Scattered rhonchi. No rales or wheezing. ABDOMEN: Bowel sounds x4, soft. No rebound, guarding or tenderness. No organomegaly. EXTREMITIES: No clubbing, cyanosis or edema. +2 pedal pulses bilaterally. SKIN: Warm and dry. TEST RESULTS: 1. A 12-lead EKG performed in the Emergency Department independently reviewed at this time. 2. Review of telemetry monitoring showed sinus rhythm. The heart rate is increasing from initially 40 to now in the 60s, no significant arrhythmias or sinus pauses. IMPRESSION: 1. Syncope. 2. Sinus bradycardia while on very significant doses of beta-michelle. 3. Recent craniotomy. 4. Anorexia. 5. Unclear goals of therapy. RECOMMENDATIONS: It was my pleasure to see Mr. Arguello in consultation today. I am not quite sure what to make of this syncopal event, but he was significantly bradycardic upon arrival, however, a dose of labetalol 200 mg t.i.d. is very significant and I agree with the discontinuation. Ever since his last dose his heart rate has steadily been climbing. So at this point, I did talk to him about possible need for pacemaker insertion, however, he doubts he would want any procedures done. So at this point to clarify his wishes along with the family's, I will ask our palliative care medicine team to evaluate the patient and get a more clear desire for care. Otherwise, his amlodipine and lisinopril have been restarted, which I agree with and we will continue to monitor for now. Thank you very much for allowing me to participate in the care of your patient.
[2016-10-04] MEDS ORDERED: LISINOPRIL 20 MG TAB PO ONE (12:30)
--- NOTE | 2016-10-04 14:06 | Psychiatric Consultation ---
Consultation Identifying Data 76 y/o male with a history of multiple medical problems and depression who was recently treated for hemorrhagic stroke at [facility] and was discharged to [facility] for rehabilitation. He was admitted to our facility yesterday after an episode of syncope and altered mental status. Psychiatry is consulted for depression. Chief Complaint "I don't know". History of Present Illness The patient was seen with his and daughter at bedside, who provided much of the history. He states that he has no history of depression, but his and daughter state that he was diagnosed with depression years ago and treated with Celexa. He did well until he had his stroke, and was started on Lexapro by a physician at [facility] approximately one week ago due to concerns that depression was playing a role in his poor participation in therapy. He had not been eating for several days prior to admission, and was feeling more weak and shaky. He does not think he has been depressed, stating that he has poor energy and is frustrated that he has not been able to walk since his stroke, but does not feel sad. His and daughter share that his disinterested attitude was unlike him, but that since starting the Lexapro 1 week ago, he has had more energy, is eating more, and "is more like dad." He has been more active and is showing more interest in things. He is enjoying the food here, and is enjoying visiting with multiple family members. He denies hopelessness, tearfulness, suicidality, homicidality, and psychosis. Past Psychiatric History Current OP Treatment: no current treatment Prior OP Treatment: no prior treatment (was prescribed antidepressant medication by PCP for one episode of depression in the past) Prior Psych Hospitalizations: other (none) (1) Depression The patient's family states he had one episode of depression years ago which was treated with Celexa. No history of suicide attempts or violence. Past Medical/Surgical History Problem List: (1) CKD (chronic kidney disease), stage III (2) HTN (hypertension) (3) History of DVT (deep vein thrombosis) (4) History of pulmonary embolism (5) Cerebral hemorrhage (6) H/O hernia repair (7) s/p filter placement (8) Status post craniectomy Allergies Allergies: Coded Allergies: No Known Allergies (Unverified , 10/03/16) Home Medications Scheduled Amlodipine (Norvasc), 5 MG PO QAM Docusate Sodium (Docusate Sodium), 100 MG PO BID Enoxaparin (Lovenox), 30 MG SQ BID Escitalopram Oxalate (Lexapro), 5 MG PO QAM Famotidine (Pepcid), 20 MG PO QAM Labetalol (Normodyne), 200 MG PO TID Lisinopril (Lisinopril), 20 MG PO BID Nystatin (Nystatin), 5 ML PO QID Tamsulosin HCl (Tamsulosin HCl), 0.4 MG PO QPM [Magic Mouthwash], 5 ML PO QID Scheduled PRN Acetaminophen (Tylenol), 650 MG PO Q4 PRN for MILD PAIN Bisacodyl (Dulcolax), 1 SUPP [place] DAILY PRN for NO BM FOR 2 DAYS Magnesium Hydroxide (Milk of Magnesia), 30 ML PO DAILY PRN for NO BM FOR 1 DAY Polyethylene Glycol 3350 (Miralax), 17 GM PO DAILY PRN for Constipation Senna/Docusate Sod (Senokot S), 1 TAB PO DAILY PRN for Constipation Sodium Phosphate/Biphosphate (Fleet Enema), 1 EA [place] DAILY PRN for NO BM FOR 3 DAYS Tramadol (Ultram), 50 MG PO Q6H PRN for Pain Family History Blood clots FATHER Depression DAUGHTER Personal History Additional Comments: The patient is from [facility]. He is and lives with his in [place]. He has 2 children present in the room, as well as his grandson. Family is supportive. Review of Systems 10 systems reviewed; negative except as stated above. Examination Vital Signs Vital Signs Past 12 Hours Date Time Temp Pulse Resp B/P Pulse Ox O2 Delivery O2 Flow Rate FiO2 10/04/16 12:13 36.4 61 16 182/81 98 Room Air 10/04/16 08:00 98 Room Air 10/04/16 08:00 98 Room Air 10/04/16 07:57 36.4 54 12 165/83 98 Room Air 10/04/16 04:30 Room Air 10/04/16 04:00 36.8 73 18 137/82 97 Room Air Laboratory Results Last 24 Hours Test 10/03/16 16:18 10/04/16 06:21 10/04/16 07:25 White Blood Count 8.40 K/uL 6.44 K/uL Red Blood Count 4.80 M/uL 4.48 M/uL Hemoglobin 14.7 g/dL 13.2 g/dL Hematocrit 44.0 % 40.3 % Mean Corpuscular Volume 91.7 fL 90.0 fL Mean Corpuscular Hemoglobin 30.6 pg 29.5 pg Mean Corpuscular Hemoglobin Concent 33.4 g/dl 32.8 g/dl Platelet Count 143 K/uL 123 K/uL Mean Platelet Volume 11.7 fL 11.6 fL Neutrophils (%) (Auto) 77.6 % Lymphocytes (%) (Auto) 10.5 % Monocytes (%) (Auto) 8.7 % Eosinophils (%) (Auto) 2.5 % Basophils (%) (Auto) 0.2 % Neutrophils # (Auto) 6.52 K/uL Lymphocytes # (Auto) 0.88 K/uL Monocytes # (Auto) 0.73 K/uL Eosinophils # (Auto) 0.21 K/uL Basophils # (Auto) 0.02 K/uL RDW Standard Deviation 51.2 fL 49.3 fL RDW Coefficient of Variation 15.2 % 15.0 % Immature Granulocyte % (Auto) 0.5 % Immature Granulocyte # (Auto) 0.04 K/uL Prothrombin Time 11.4 SECONDS Prothromb Time International Ratio 1.1 Activated Partial Thromboplast Time 26.6 SECONDS Partial Thromboplastin Ratio 1.0 Sodium Level 140 mmol/L 142 mmol/L Potassium Level 4.2 mmol/L 3.6 mmol/L Chloride Level 105 mmol/L 109 mmol/L Carbon Dioxide Level 25 mmol/L 25 mmol/L Anion Gap 10.0 mmol/L 8.0 mmol/L Blood Urea Nitrogen 17 mg/dl 14 mg/dl Creatinine 1.70 mg/dl 1.40 mg/dl Est Creatinine Clear Calc Drug Dose 42.0 ml/min 50.4 ml/min Estimated GFR () 44.4 56.2 Estimated GFR (Non- 38.3 48.5 BUN/Creatinine Ratio 10.1 10.1 Random Glucose 109 mg/dl 119 mg/dl Calcium Level 9.2 mg/dl 8.9 mg/dl Phosphorus Level 2.7 mg/dl Magnesium Level 2.3 mg/dl 2.3 mg/dl Total Bilirubin 1.5 mg/dl Direct Bilirubin 0.4 mg/dl Aspartate Amino Transf (AST/SGOT) 30 U/L Alanine Aminotransferase (ALT/SGPT) 44 U/L Alkaline Phosphatase 83 U/L Total Creatine Kinase 41 U/L Creatine Kinase MB 0.8 ng/ml Creatine Kinase MB Ratio 2.0 Troponin I < 0.015 ng/ml < 0.015 ng/ml Total Protein 7.4 gm/dl Albumin 3.4 gm/dl Lipase 239 U/L Urine Color DK YELLOW Urine Appearance CLEAR Urine pH 5.5 Urine Specific [place] 1.021 Urine Protein NEG Urine Glucose (UA) NEG Urine Ketones TRACE Urine Occult Blood NEG Urine Nitrite NEG Urine Bilirubin NEG Urine Urobilinogen NEG Urine Leukocyte Esterase NEG Urine WBC (Auto) 1-5 /hpf Urine RBC (Auto) 0-4 /hpf Urine Hyaline Casts (Auto) 1-5 /lpf Urine Epithelial Cells (Auto) 10-20 /lpf Urine Bacteria (Auto) NEG Mental Examination During interview pt is: alert and oriented, cooperative (patient is pleasant, joking at times throughout the assessment) Appearance: appropriately dressed (wearing a hospital gown and lying in bed in no acute distress.), other (missing some teeth) Eye contact is: fair Motor behavior is: no abnormal motor movements Speech: normal in rate, rhythm & volume Affect: mood congruent, euthymic Mood is: other ("okay") Thought process: goal directed Thought content: reality based without delusions Suicidal thought are: denied Homicidal thoughts are: denied Hallucinations: denies auditory Cognition: other (memory and attention are impaired) Insight: fair Judgement: fair Impression / Recommendations Impression 76-year-old white male from [place] who has a history of depression treated successfully with Celexa in the past, and a recurrence of some depressive symptoms after hemorrhagic stroke earlier this month. He was started on escitalopram 5 mg daily approximately one week ago by a physician at [facility], and family note visible improvement already, with increased energy , appetite, and brighter affect. This is an appropriate treatment, and do not recommend further medication changes at this time. Recommendations (1) Depression Continue escitalopram 5 mg daily, which was just started about one week ago. Educated the patient and family that it will take 4-6 weeks to see the full effect of the medication. Patient's appetite is improved, and he should be encouraged to eat, as this will also help with his energy and strength. There is no indication for psychiatric hospitalization, and he can follow up with his outpatient physician on discharge.
--- NOTE | 2016-10-04 14:31 | Neurology Consultation ---
Neurology Consultation Date of Consultation: Oct 04, 2016. Attending Physician: Elizabeth Gauthier M.D. Primary Care Physician: No Doctor, Assigned Reason for Consultation: syncope History of Present Illness Source: patient, family Aidan is a 76 year old male with PMH HTN, DVT/PE (with IVC filter), depression , CKD, hypercoag, who was transported to [facility] with a IPH and had a suboccipital evacuation. He was in rehab at and after a session with rehab staff he was taken back to his room and transferring from the wheelchair to the bed he had an episode of syncope. He does not remember any of this. His is reporting the details. He was seen by cardiology and they feel his heart rate may have caused the episode and discussed a pacer but he does not want the surgery. denies current CP, SOB, abdominal pain, N, V, + decrease appetite, generalized weakness. Past Medical/Surgical History Medical Problems: (1) Altered mental status Status: Acute Social History Alcohol Use: none Marital Status: Occupation Status: retired Allergies Coded Allergies: No Known Allergies (Unverified , 10/03/16) Current Inpatient Medications Current Inpatient Medications Medications (Trade) Dose Ordered Sig/David Route Start Time Stop Time Status Last Admin Dose Admin Acetaminophen (Tylenol Tab) 650 mg Q4H PRN PO 10/03/16 18:00 11/02/16 17:59 Ondansetron HCl (Zofran Inj) 4 mg Q6H PRN IV 10/03/16 18:00 11/02/16 17:59 Amlodipine Besylate (Norvasc Tab) 5 mg QAM PO 10/04/16 09:00 11/03/16 08:59 10/04/16 09:35 5 MG Bisacodyl (Dulcolax Supp) 10 mg DAILY PRN MT 10/03/16 18:15 11/02/16 18:14 Docusate Sodium (coLACE CAP) 100 mg BID PO 10/03/16 21:00 11/02/16 20:59 10/04/16 09:36 100 MG Enoxaparin Sodium (Lovenox Inj) 30 mg BID SQ 10/03/16 22:00 11/02/16 21:59 10/04/16 09:36 30 MG Escitalopram Oxalate (Lexapro Tab) 5 mg QAM PO 10/04/16 09:00 11/03/16 08:59 10/04/16 09:36 5 MG Famotidine (Pepcid Tab) 20 mg QAM PO 10/04/16 09:00 11/03/16 08:59 10/04/16 09:35 20 MG Magnesium Hydroxide (Milk Of Magnesia Susp) 30 ml DAILY PRN PO 10/03/16 18:15 11/02/16 18:14 Nystatin (Mycostatin Susp) 5 ml QID PO 10/03/16 21:00 10/13/16 20:59 10/04/16 13:35 5 ML Senna/Docusate Sodium (Senokot S Tab) 1 tab DAILY PRN PO 10/03/16 18:15 11/02/16 18:14 Sodium Biphosphate/ Sodium Phosphate (Fleet Enema) 132 ml DAILY PRN MT 10/03/16 18:15 11/02/16 18:14 Tamsulosin HCl (Flomax Cap) 0.4 mg QPM PO 10/03/16 21:00 11/02/16 20:59 10/03/16 21:51 0.4 MG Tramadol HCl (Ultram Tab) 50 mg Q6H PRN PO 10/03/16 18:15 11/02/16 18:14 Polyethylene 17 gm DAILY PRN PO 10/03/16 18:15 11/02/16 18:14 Dexamethasone/ Nystatin/ Diphenhydramine HCl/Sucrose/ Microcrystalline Cellulose/Barcode (Decadron Conc Soln/Mycostatin Susp/Benadryl Syrup/Ora-Sweet Syrup/Ora-Plus Susp. Vehicle) QID PO 10/03/16 22:00 11/02/16 21:59 10/04/16 13:35 5 ML Miscellaneous (Iv Fluids Completed) 1 ea PRN PRN N/A 10/03/16 21:30 10/03/17 21:29 Lisinopril (Zestril Tab) 20 mg BID PO 10/04/16 21:00 11/03/16 20:59 Physical Exam Vital Signs (Past 24 Hrs): Date Time Temp Pulse Resp B/P Pulse Ox O2 Delivery O2 Flow Rate FiO2 10/04/16 12:13 36.4 61 16 182/81 98 Room Air 10/04/16 08:00 98 Room Air 10/04/16 08:00 98 Room Air 10/04/16 07:57 36.4 54 12 165/83 98 Room Air 10/04/16 04:30 Room Air 10/04/16 04:00 36.8 73 18 137/82 97 Room Air 10/04/16 00:00 Room Air 10/04/16 00:00 36.9 55 18 142/83 97 Room Air 10/03/16 19:27 37.0 70 19 152/84 92 Room Air 10/03/16 18:52 61 15 94 10/03/16 18:22 55 14 96 10/03/16 18:08 110/76 10/03/16 18:08 56 16 110/76 95 Room Air 10/03/16 17:52 59 20 95 10/03/16 17:22 55 15 95 10/03/16 16:57 58 18 132/72 97 Room Air 10/03/16 16:57 132/72 10/03/16 16:52 57 15 95 10/03/16 16:22 57 12 95 10/03/16 16:07 66 10/03/16 16:04 119/80 10/03/16 16:03 115/81 10/03/16 16:01 37.0 57 18 129/70 96 Room Air 10/03/16 16:01 96 Room Air 10/03/16 16:01 57 129/70 65 115/81 72 119/80 10/03/16 15:55 129/70 Physical Exam: Constitutional: appearance nourished, healthy and normal Ears, Nose, Mouth and Throat: mucous membranes moist, no injection and skin normal, eyes normal Cardiovascular: normal S-1 and S-2 and regular rate and rhythm Respiratory: clear to auscultation (CTA) and no rales, rhonchi or wheeze Musculoskeletal: no peripheral edema and good distal pulses Skin: no stigmata of neurocutaneous disease noted and normal and intact, posterior occipital cervical incision well healing Eyes: extraocular muscles intact (EOMI) and pupils equal, round and reactive to light (PERRL) miotic NEUROLOGIC EXAMINATION: Mental status: Alert and interactive Oriented to person Speech fluent with no evidence of aphasia Cranial Nerves smile eye brow raise symmetric, tongue midline Reflexes: Deep tendon reflexes were symmetrical and graded 2/5. Plantar responses were flexor. Sensory: no sensory deficits, to cool touch, vibration or GT proprioception Coordination: finger to nose with bipass on left Gait/Stance: sitting in bed Motor: Negative for pronator drift of out stretched arms with eyes closed. Strength: biceps triceps deltoids hand urban redevelopment specialist 5/5 bilaterally, hip flex plantar flex ext 5/ 5 bilaterally Laboratory Results Past 24 Hours: 10/04/16 07:25 10/04/16 07:25 Test 10/03/16 16:18 10/04/16 06:21 10/04/16 07:25 Immature Granulocyte % (Auto) 0.5 % White Blood Count 8.40 K/uL (4.8-10.8) Red Blood Count 4.80 M/uL (4.7-6.1) 4.48 M/uL (4.7-6.1) Hemoglobin 14.7 g/dL (14.0-18.0) Hematocrit 44.0 % (42-52) Mean Corpuscular Volume 91.7 fL (80-100) 90.0 fL (80-100) Mean Corpuscular Hemoglobin 30.6 pg (25-34) 29.5 pg (25-34) Mean Corpuscular Hemoglobin Concent 33.4 g/dl (32-36) 32.8 g/dl (32-36) Platelet Count 143 K/uL (130-400) Mean Platelet Volume 11.7 fL (7.4-10.4) 11.6 fL (7.4-10.4) Neutrophils (%) (Auto) 77.6 % Lymphocytes (%) (Auto) 10.5 % Monocytes (%) (Auto) 8.7 % Eosinophils (%) (Auto) 2.5 % Basophils (%) (Auto) 0.2 % Neutrophils # (Auto) 6.52 K/uL (1.4-6.5) Lymphocytes # (Auto) 0.88 K/uL (1.2-3.4) Monocytes # (Auto) 0.73 K/uL (0.11-0.59) Eosinophils # (Auto) 0.21 K/uL (0-0.5) Basophils # (Auto) 0.02 K/uL (0-0.2) Immature Granulocyte # (Auto) 0.04 K/uL (0.00-0.02) Prothrombin Time 11.4 SECONDS (9.0-12.0) Prothromb Time International Ratio 1.1 (0.9-1.1) Activated Partial Thromboplast Time 26.6 SECONDS (21.0-31.0) Partial Thromboplastin Ratio 1.0 Phosphorus Level 2.7 mg/dl (2.5-4.9) Total Bilirubin 1.5 mg/dl (0.2-1) Direct Bilirubin 0.4 mg/dl (0-0.2) Aspartate Amino Transf (AST/SGOT) 30 U/L (15-37) Alanine Aminotransferase (ALT/SGPT) 44 U/L (12-78) Alkaline Phosphatase 83 U/L (45-117) Total Creatine Kinase 41 U/L (39-308) Creatine Kinase MB 0.8 ng/ml (0.5-3.6) Creatine Kinase MB Ratio 2.0 (0-3.0) Total Protein 7.4 gm/dl (6.4-8.2) Albumin 3.4 gm/dl (3.4-5.0) Lipase 239 U/L (73-393) Urine Color DK YELLOW Urine Appearance CLEAR (CLEAR) Urine pH 5.5 (4.5-7.5) Urine Specific [place] 1.021 (1.000-1.030) Urine Protein NEG (NEG) Urine Glucose (UA) NEG (NEG) Urine Ketones TRACE (NEG) Urine Occult Blood NEG (NEG) Urine Nitrite NEG (NEG) Urine Bilirubin NEG (NEG) Urine Urobilinogen NEG (NEG) Urine Leukocyte Esterase NEG (NEG) Urine WBC (Auto) 1-5 /hpf (0-5) Urine RBC (Auto) 0-4 /hpf (0-4) Urine Hyaline Casts (Auto) 1-5 /lpf (0-5) Urine Epithelial Cells (Auto) 10-20 /lpf (0-5) Urine Bacteria (Auto) NEG (NEG) RDW Standard Deviation 49.3 fL (36.4-46.3) RDW Coefficient of Variation 15.0 % (11.5-14.5) Anion Gap 8.0 mmol/L (3-11) Est Creatinine Clear Calc Drug Dose 50.4 ml/min Estimated GFR () 56.2 Estimated GFR (Non- 48.5 BUN/Creatinine Ratio 10.1 (10-20) Calcium Level 8.9 mg/dl (8.5-10.1) Magnesium Level 2.3 mg/dl (1.8-2.4) Troponin I < 0.015 ng/ml (0-0.045) Date/Time Source Procedure Growth Status 10/03/16 20:50 Nasal MRSA DNA Surveillance Screen - Final Specimen Negative for MRSA by DNA Probe Complete Imaging carotid doppler No hemodynamically significant stenosis seen within the carotid arteries. Mild plaque formation CT head- Brain parenchyma: There are age-related involutional changes noting moderate patchy subcortical and periventricular microangiopathic change. Chronic lacunar infarcts are present within the basal ganglia bilaterally. There is no hemorrhage, mass effect, or evidence of acute territorial ischemia by CT criteria. Schulz-white matter is preserved. No extra-axial fluid collection is seen. Ventricles, sulci, cisterns: Prominent secondary to involutional change. Intracranial vasculature: There is atherosclerotic calcification of the cavernous carotid and vertebral arteries. Calvarium: The skeletal structures are osteopenic. No depressed calvarial fracture is seen. There are postoperative changes from occipital craniectomy. Sinuses and mastoids: The visualized paranasal sinuses are clear. The mastoid air cells are well pneumatized. Orbits: The bony orbits are grossly intact. Impression 76 year old male s/p syncope Plan 1. TTE pending 2. cardiology consult for recommendations completed 3. Carotid doppler no significant stenosis 4. orthostatic blood pressure 5. EEG to evaluate for possible seizure 6. PT/OT for discharge needs 7. nutrition- indicated he is not eating well 8. swallowing precautions-evaluate 9. further recommendations to follow I have seen and discussed above patient with Dr Cherie Lilly, neurology Pt with recent ICH s/p evacuation, which occured while pt on coumadin. Pt had a syncopal event at [facility]. No sz activity was reported and heart rate noted to be in the 40s. CT head reviewed, exam is nonfocal. Pt awake, alert, irritable only partially cooperative, no field cut, facial asymmetry. No asymmetric weakness. To complete work-up have ordered EEG. It seems clear syncope was related to bradycardia. I would also monitor orthostatic bp and p. LANCE Lilly MD
[2016-10-04] MEDS ORDERED: PERFLUTREN LIPID MICROSPHERE (DEFINITY) IV ONE (14:45)
--- NOTE | 2016-10-04 16:45 | ECHOCARDIOGRAM REPORT ---
*NOTICE TO RECEIVING REPUBLICAN AGENCY This information is strictly Confidential and protected under [place] law. [place] law prohibits you from making any further disclosure of this information unless further disclosure is expressly permitted by the written consent of the person to whom it pertains or is authorized by law. A general authorization for the release of medical or other information is not sufficient for this purpose. Hospital accepts no responsibility if the information is made available to any other person, INCLUDING THE PATIENT. Interpretation Summary * Name: CAMPBELL CAMACHO Study Date: 10/04/2016 02:04 PM BP: 137/82 mmHg * Patient Location: C.2T\S\E221\S\1 HR: 73 * : 1940 (M/d/yyyy) Gender: Male Height: 67 in * Age: 76 yrs Ethnicity: CA Weight: 216 lb * Ordering Physician: Sharon Nair * Referring Physician: Self, Referred * Performed By: Gina Morton RDCS * * Reason For Study: Syncope * BSA: 2.1 m2 * Normal biventricular systolic function. * Mild concentric left ventricular hypertrophy. * Left ventricular diastolic dysfunction. * Borderline left atrial dilatation. * Mildly dilated ascending aorta ( 4 cm). * No significant valvular abnormalities. Procedure Details * A complete two-dimensional transthoracic echocardiogram was performed (2D, M-mode, Doppler and color flow Doppler). * The study was technically difficult. * The study was technically difficult, but visualization was adequate with the administration of Definity ultrasound contrast. * A contrast injection of Definity was performed to improve assessment of LV function. * Contrast was injected into an intravenous site in the right arm. * One vial of Definity ultrasound contrast was diluted in normal saline to a total volume of 10 ml. A total of '3' ml of solution was administered during imaging. * Lot # [id number] of Definity utilized for procedure. * Expiration date . * The attending nurse who injected the contrast agent was Shamika Bronson RN. Left Ventricle * The left ventricle is normal in size. * There is mild concentric left ventricular hypertrophy. * Ejection Fraction = 60-65%. * Left ventricular systolic function is normal. * A full diastolic examination was done with clinical findings of Class I diastolic dysfunction. * The left ventricular wall motion is normal. Right Ventricle * The right ventricle is normal in size and function. * The right ventricular systolic function is normal as assessed by tricuspid annular plane systolic excursion (TAPSE) (normal >1.5 cm). Atria * Borderline left atrial enlargement. Mitral Valve * There is mild mitral annular calcification. * There is no mitral valve stenosis. * There is no mitral regurgitation noted. Tricuspid Valve * The tricuspid valve is not well visualized, but is grossly normal. * There is no tricuspid stenosis. * There is trace tricuspid regurgitation. * Right ventricular systolic pressure is normal. Aortic Valve * The aortic valve opens well. * The aortic valve is trileaflet. * Aortic stenosis is absent. * No aortic regurgitation is present. Pulmonic Valve * The pulmonic valve is not well visualized. * There is no pulmonic valvular stenosis. * Trace pulmonic valvular regurgitation. Great Vessels * Mildly dilated ascending aorta. Pericardium/Pleural * There is no pericardial effusion. MMode 2D Measurements and Calculations IVSd 1.3 cm IVSs 1.4 cm LVIDd 4.3 cm LVIDs 2.6 cm LVPWd 1.3 cm LVPWs 2.3 cm IVS/LVPW 1.0 FS 39.0 % EDV(Teich) 81.6 ml ESV(Teich) 24.6 ml EF(Teich) 69.8 % EDV(cubed) 77.7 ml ESV(cubed) 17.6 ml EF(cubed) 77.3 % % IVS thick 9.0 % % LVPW thick 83.3 % LV mass(C)d 199.9 grams LV mass(C)dI 95.7 grams/m\S\2 LV mass(C)s 196.1 grams LV mass(C)sI 93.8 grams/m\S\2 SV(Teich) 57.0 ml SI(Teich) 27.3 ml/m\S\2 SV(cubed) 60.1 ml SI(cubed) 28.8 ml/m\S\2 Ao root diam 3.1 cm Ao root area 7.4 cm\S\2 ACS 2.1 cm LA dimension 4.0 cm asc Aorta Diam 4.0 cm LA/Ao 1.3 LVAd ap4 16.9 cm\S\2 LVLd ap4 7.0 cm EDV(MOD-sp4) 35.2 ml EDV(sp4-el) 34.5 ml LVAs ap4 9.2 cm\S\2 LVLs ap4 5.6 cm ESV(MOD-sp4) 13.4 ml ESV(sp4-el) 12.9 ml EF(MOD-sp4) 61.8 % EF(sp4-el) 62.6 % LVAd ap2 20.1 cm\S\2 LVLd ap2 7.0 cm EDV(MOD-sp2) 50.9 ml EDV(sp2-el) 48.8 ml LVAs ap2 13.3 cm\S\2 LVLs ap2 6.9 cm ESV(MOD-sp2) 21.6 ml ESV(sp2-el) 21.6 ml EF(MOD-sp2) 57.5 % EF(sp2-el) 55.8 % LVLd %diff 0.81 % EDV(MOD-bp) 42.3 ml LVLs %diff 19.4 % ESV(MOD-bp) 18.9 ml EF(MOD-bp) 55.2 % SV(MOD-sp4) 21.8 ml SI(MOD-sp4) 10.4 ml/m\S\2 SV(MOD-sp2) 29.3 ml SI(MOD-sp2) 14.0 ml/m\S\2 SV(MOD-bp) 23.3 ml SI(MOD-bp) 11.2 ml/m\S\2 SV(sp4-el) 21.6 ml SI(sp4-el) 10.3 ml/m\S\2 SV(sp2-el) 27.2 ml SI(sp2-el) 13.0 ml/m\S\2 Doppler Measurements and Calculations MV E max maddy 55.3 cm/sec MV A max maddy 92.6 cm/sec MV E/A 0.60 MV dec time 0.24 sec Ao V2 max 114.6 cm/sec Ao max PG 5.3 mmHg Ao max PG (full) 3.1 mmHg LV V1 max PG 2.1 mmHg LV V1 max 72.8 cm/sec PA V2 max 134.4 cm/sec PA max PG 7.2 mmHg PI max maddy 101.3 cm/sec PI max PG 4.6 mmHg PI dec slope 87.4 cm/sec\S\2 PI P1/2t 339.5 msec TR max maddy 250.4 cm/sec
[2016-10-04] MEDS: TAMSULOSIN HCL 0.4 MG CAP PO SCH (20:36)
[2016-10-04] MEDS: LISINOPRIL 20 MG TAB PO SCH (20:36)
[2016-10-05] VITALS: O2SAT 96
[2016-10-05 04:00] VITALS: BP 172/120; PULSE 67; TEMP 36.8; O2SAT 96
[2016-10-05] MEDS: AMLODIPINE BESYLATE 5 MG TAB PO SCH (05:08)
[2016-10-05 07:41] VITALS: BP 146/86; PULSE 62; TEMP 36.5; O2SAT 96
[2016-10-05 07:45] LABS: HEMATOCRIT 41.7 % (42-52); MEAN CELL VOLUME 89.9 fL (80-100); MEAN CORPUSCULAR HEMOGLOBIN 29.7 pg (25-34); MEAN CORPUSCULAR HGB CONC 33.1 g/dl (32-36); MEAN PLATELET VOLUME 11.6 fL (7.4-10.4); PLATELET COUNT 120 K/uL (130-400); RED BLOOD COUNT 4.64 M/uL (4.7-6.1); WHITE BLOOD COUNT 6.58 K/uL (4.8-10.8)
[2016-10-05] MEDS: NYSTATIN SUSP 500,000 U/5 ML UDC PO SCH (08:20)
[2016-10-05] MEDS: FAMOTIDINE 20 MG TAB PO SCH (08:20)
[2016-10-05] MEDS: ESCITALOPRAM OXALATE 10 MG TAB PO SCH (08:20)
[2016-10-05] MEDS: DOCUSATE SODIUM 100 MG CAP PO SCH (08:20)
[2016-10-05] MEDS: LISINOPRIL 20 MG TAB PO SCH (08:21)
[2016-10-05] MEDS: ENOXAPARIN 30 MG/0.3 ML SYR SQ SCH (08:21)
[2016-10-05] MEDS: DEXAMETHASONE CONC SOLN 3.75 MG, NYSTATIN SUSP 30 ML, DiphenhydrAMINE HCL SYRUP 300 MG,... PO SCH ×5 (08:24)
[2016-10-05 08:27] LABS: BUN/CREATININE RATIO 7.4 (10-20); CALCIUM 9.4 mg/dl (8.5-10.1); CREATININE 1.5 mg/dl (0.60-1.40); POTASSIUM 3.8 mmol/L (3.5-5.1)
[2016-10-05] MEDS ORDERED: AMLODIPINE BESYLATE 5 MG TAB PO SCH (09:00)
[2016-10-05] MEDS ORDERED: AMLODIPINE BESYLATE 5 MG TAB PO ONE (10:15)
--- NOTE | 2016-10-05 10:42 | Hospitalist Progress Note ---
Hospitalist Progress Note Date of Service Oct 05, 2016. (Jesica Garcia CRNP) Subjective Patient seen and examined. More alert today, also oriented. Reports continued poor appetite due to sores in mouth. Denies chest pain and shortness of breath. Chronic lightheadedness with standing continues, no further syncopal events. Denies abdominal pain or nausea. (Jesica Garcia CRNP) Pt was seen and examined by me. Agree with Jesica exam, Assessment and plan. Pt lying comfortable in bed. he denies any syncopal episodes, palpitation, dizziness and SOB. EEG order by neuro pending. will transfer to rehab if EEG normal. (Elizabeth Gauthier M.D.) Objective Vital Signs Date Time Temp Pulse Resp B/P Pulse Ox O2 Delivery O2 Flow Rate FiO2 10/05/16 07:45 Room Air 10/05/16 07:41 36.5 62 18 146/86 96 Room Air 10/05/16 04:00 36.8 67 20 172/120 96 Room Air 10/05/16 04:00 96 Room Air 10/05/16 00:00 96 Room Air 10/04/16 23:31 36.8 61 20 148/85 95 Room Air 10/04/16 20:34 36.8 62 20 157/91 97 Room Air 10/04/16 20:30 Room Air 10/04/16 18:40 36.8 70 20 151/87 95 Room Air 10/04/16 16:00 Room Air 10/04/16 15:41 36.6 54 20 146/89 96 Room Air 10/04/16 12:13 36.4 61 16 182/81 98 Room Air 10/04/16 12:00 Room Air (Jesica Garcia CRNP) Physical Exam General Appearance: no apparent distress Eyes: normal inspection ENT: hearing grossly normal, + pertinent finding (thrush noted) Neck: supple, no JVD Respiratory/Chest: lungs clear, normal breath sounds, no respiratory distress Cardiovascular: regular rate, rhythm, no edema Abdomen: normal bowel sounds, non tender, soft Neurologic/Psychiatric: no motor/sensory deficits, alert, oriented x 3, + depressed affect Skin: normal color, warm/dry (Jesica Garcia CRNP) Laboratory Results Last 24 Hours Test 10/05/16 07:26 White Blood Count 6.58 K/uL Red Blood Count 4.64 M/uL Hemoglobin 13.8 g/dL Hematocrit 41.7 % Mean Corpuscular Volume 89.9 fL Mean Corpuscular Hemoglobin 29.7 pg Mean Corpuscular Hemoglobin Concent 33.1 g/dl RDW Standard Deviation 49.2 fL RDW Coefficient of Variation 15.0 % Platelet Count 120 K/uL Mean Platelet Volume 11.6 fL Sodium Level 143 mmol/L Potassium Level 3.8 mmol/L Chloride Level 108 mmol/L Carbon Dioxide Level 26 mmol/L Anion Gap 9.0 mmol/L Blood Urea Nitrogen 11 mg/dl Creatinine 1.50 mg/dl Est Creatinine Clear Calc Drug Dose 47.0 ml/min Estimated GFR () 51.7 Estimated GFR (Non- 44.6 BUN/Creatinine Ratio 7.4 Random Glucose 91 mg/dl Calcium Level 9.4 mg/dl (Jesica Garcia ., JUNIOR SOFTWARE DEVELOPER) Diagnostic Results ECHO: Normal biventricular systolic function. Mild concentric left ventricular hypertrophy. Left ventricular diastolic dysfunction. Borderline left atrial dilatation. Mildly dilated ascending aorta ( 4 cm). No significant valvular abnormalities. (Jesica Garcia ., JUNIOR SOFTWARE DEVELOPER) Assessment and Plan SYNCOPE - admitted to tele - consider vasovagal vs bradycardia vs orthostasis due to poor PO intake - per [facility] - patient's HR was in the 40s at the time of the event; HR has remained > 50 while hospitalized and slowing increasing since labetalol has been stopped - orthostatic BPs negative - CT head negative for acute findings - no stenosis on carotid doppler - neuro and cardio consults placed - input appreciated - EEG ordered by neuro - results pending HISTORY OF CEREBRAL HEMORRHAGE - 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 - continue Lovenox 30 mg SQ BID - full anticoagulation on hold due to recent cerebral hemorrhage HYPERTENSION - lisinopril and labetalol held on admission, amlodipine continued - lisinopril resumed and amlodipine increased 2/ - BPs with intermittent control DEPRESSION - suspect this is contributing to patient's poor oral intake and lack of motivation with therapy - started on Lexapro ~ 1 week ago at [facility] - evaluated by mental health - no further recommendations at this time CKD STAGE III - baseline creat 1.5-1.8 - 1.5 today - continue to monitor renal function, avoid nephrotoxic agents when able THRUSH - will start Mycelex CODE STATUS - Full code DISPOSITION - pending - currently at [facility] - PT/OT (Jesica Garcia ., STACY)
[2016-10-05] MEDS ORDERED: MAGIC MOUTHWASH PO PRN (10:45)
[2016-10-05] MEDS ORDERED: CLOTRIMAZOLE 10 MG TROCHE MT SCH (11:00)
[2016-10-05] MEDS ORDERED: DEXAMETHASONE CONC SOLN 3.75 MG, NYSTATIN SUSP 30 ML, DiphenhydrAMINE HCL SYRUP 300 MG,... PO PRN ×5 (11:00)
[2016-10-05 12:03] VITALS: BP 132/81; PULSE 70; TEMP 36.3; O2SAT 98
--- NOTE | 2016-10-05 12:54 | ELECTROENCEPHALOGRAPH REPORT ---
REQUESTED BY: Cherie Sauceda PA-C. CLINICAL DIAGNOSIS: Syncope, question seizures. EEG DIAGNOSIS: Essentially normal during wakefulness and drowsiness. DESCRIPTION OF TRACING: This EEG was done as a bedside recording with simultaneous video analysis of patient movement and behavior. Photic stimulation was performed. Hyperventilation was not. Drowsiness is recorded episodically, but fully sustained period of sleep are not seen. During wakefulness, there is evidence for normal appearing background rhythm in the alpha range of up to 10 Hz of maximum frequency and 25 microvolts of maximum amplitude. This is maximum in posterior head regions and bilaterally symmetrical. Polymorphic mid to slightly lower frequency theta activity is seen over all head regions without clear focal or regional predominance. Anterior head region maximum bilaterally symmetrical low voltage fast activity in the beta range is present. Episodically drowsiness is recorded characterized by the emergence of more synchronous theta delta activity and disappearance of normal background alpha rhythm. During these intervals, no abnormal activations occur. Photic stimulation provoked some modest driving response without photomyogenic or photoparoxysmal component. At no time during the waking or drowsy tracing is there evidence for potentially epileptogenic activity in the form of polyspike or spike wave bursts, focal sharp waves or focal spikes. INTERPRETATION: This EEG is essentially normal during wakefulness and brief duration of drowsiness without evidence for focal or generalized encephalopathy and without evidence for potentially epileptogenic activity.
[2016-10-05] MEDS ORDERED: MYC10 MT (13:19)
[2016-10-05] MEDS ORDERED: NRV5 PO (13:19)
--- NOTE | 2016-10-05 13:24 | Discharge Instructions ---
Discharge Instructions Admission Reason for Admission: Syncope Discharge Discharge Diagnosis / Problem: Syncope due to Symptomatic Bradycardia Discharge Goals Goal(s): Decrease discomfort, Improve function Activity Recommendations Activity Limitations: resume your previous activity (work with PT/OT) . Instructions / Follow-Up Instructions / Follow-Up Follow up with physician at [facility]. Patient was admitted for evaluation of syncopal event. This was felt to be due to symptomatic bradycardia from beta michelle therapy. Heart rate improved once beta michelle was held and patient had no further syncopal events. He was evaluated by cardiology and neurology. Full discharge summary to follow. Current Hospital Diet Patient's current hospital diet: AHA Diet (Heart Healthy) Discharge Diet Recommended Diet: AHA Diet (Heart Healthy) Pending Studies Studies pending at discharge: no Medical Emergencies . Who to Call and When: Medical Emergencies: If at any time you feel your situation is an emergency, please call 911 immediately. . Non-Emergent Contact Non-Emergency issues call your: Primary Care Provider . . "Provider Documentation" section prepared by Jesica Garcia. VTE Core Measure Inpt VTE Proph given/why not?: Enoxaparin (Lovenox)SQ
--- NOTE | 2016-10-05 13:38 | Discharge Summary ---
Discharge Summary Admission Date: Oct 03, 2016 at 17:56 Discharge Date: Oct 05, 2016 Discharge Disposition: Rehab Principal Diagnosis: Syncope due to Symptomatic Bradycardia Secondary Diagnoses/Problems: HISTORY OF CEREBRAL HEMORRHAGE HISTORY OF DVT/ PE / HYPERCOAGULABLE STATE HYPERTENSION DEPRESSION CKD STAGE III THRUSH Procedures: CT HEAD IMPRESSION: 1. Senescent changes as above with no hemorrhage, mass effect, or evidence of acute territorial ischemia by CT criteria. 2. There are postoperative changes from suboccipital craniectomy. CXR IMPRESSION: No acute cardiopulmonary abnormality. CAROTID ARTERY US IMPRESSION: No hemodynamically significant stenosis seen within the carotid arteries. Mild plaque formation ECHO: Normal biventricular systolic function. Mild concentric left ventricular hypertrophy. Left ventricular diastolic dysfunction. Borderline left atrial dilatation. Mildly dilated ascending aorta ( 4 cm). No significant valvular abnormalities. EEG INTERPRETATION: This EEG is essentially normal during wakefulness and brief duration of drowsiness without evidence for focal or generalized encephalopathy and without evidence for potentially epileptogenic activity. Consultations: Dr. Lilly, neurology Dr. Faust, cardiology Dr. Farrell, mental health Pending Studies/Follow-Up: patient's labetalol was discontinued and amlodipine was increased - please monitor BP and make adjustments as needed also monitor orthostatic BPs due to poor PO intake Medication Reconciliation New Medications: Amlodipine Besylate (Amlodipine Besylate) 5 Mg Tab 10 MG PO QAM for 30 Days, #30 TAB Clotrimazole (Clotrimazole) 1 Luis Enrique Troc 1 LUIS ENRIQUE MT [id number] for 7 Days Continued Medications: Acetaminophen (Tylenol) 325 Mg Tab 650 MG PO Q4 PRN for MILD PAIN, TAB Bisacodyl (Dulcolax) 10 Mg Sup 1 SUPP PA DAILY PRN for NO BM FOR 2 DAYS, SUP Docusate Sodium (Docusate Sodium) 100 Mg Cap 100 MG PO BID for 7 Days, #14 CAP 1 TAB @0900 AND @1700 Enoxaparin (Lovenox) 30 Mg/0.3 Ml Inj 30 MG SQ BID, SYR @0700 AND @1900 Escitalopram Oxalate (Lexapro) 5 Mg Tab 5 MG PO QAM, TAB Famotidine (Pepcid) 20 Mg Tab 20 MG PO QAM, TAB Lisinopril (Lisinopril) 20 Mg Tab 20 MG PO BID Magnesium Hydroxide (Milk of Magnesia) 30 Ml Susp 30 ML PO DAILY PRN for NO BM FOR 1 DAY Polyethylene Glycol 3350 (Miralax) 1 Pow Pow 17 GM PO DAILY PRN for Constipation, #255 GM Senna/Docusate Sod (Senokot S) 1 Tab Tab 1 TAB PO DAILY PRN for Constipation, TAB Sodium Phosphate/Biphosphate (Fleet Enema) Olena 1 EA PA DAILY PRN for NO BM FOR 3 DAYS, BTL Tamsulosin HCl (Tamsulosin HCl) 0.4 Mg Cap 0.4 MG PO QPM Tramadol (Ultram) 50 Mg Tab 50 MG PO Q6H PRN for Pain, TAB [Magic Mouthwash] () 5 ML PO QID PRN for MOUTH PAIN SWISH AND SPIT Discontinued Medications: Amlodipine (Norvasc) 5 Mg Tab 5 MG PO QAM, TAB Labetalol (Normodyne) 200 Mg Tab 200 MG PO TID, TAB Nystatin (Nystatin) 5 Ml Susp 5 ML PO QID SWISH AND SWALLOW Admission Information HPI (per Admitting provider): This is a 76 year old male with PMH of HTN, CKD, history of DVT and PE, primary hypercoagulable state, prior Coumadin anticoagulation, history of cerebral hemorrhage s/p craniectomy, who presents to the [facility] from [facility] for unresponsive episode. Patient follows with [facility] for primary care. Patient is a poor historian so history obtained from records, [facility] RN, and phone call w/ . Patient was recently hospitalized at [facility] from 09/05-2016 for acute cerebellar hemorrhage in setting of Coumadin anticoagulation. He underwent craniectomy with evacuation of intracerebellar hematoma on 09/05/2016. He was d/c to [facility]. Per Rosey RN at [facility], it was reported to her that this morning on way back from therapy patient was c/o nausea. When patient was sitting on wheelchair when about to be transferred, he became unresponsive, pale, with cyanosis of the lips. Sternal rub was ineffective. At that time his HR was in 40s, RR was 12, and O2 sat was 89% on RA which improved to 98-100% on non-rebreather, and BP was 102/69. The duration of the episode is not known, but on EMS arrival patient was alert. No reported seizure activity. [facility] RN notes that patient has been refusing meals since September 29. The patient does not recall the details of the event. He does report that earlier today he had pressure in substernal area, lightheadedness, nausea, and SOB, which are now resolved. He does not recall further details. He does not recall LOC. He admits to feeling tired. Denies any pain. Per his , since the recent CVA patient has slurred speech, intermittent disorientation, and short and detention memory difficulty. She states he initially had swallowing difficulty after the stroke but it resolved. He has not been ambulating much at [facility]. He denies fever, chills, vision change, swallowing difficulty, weakness, numbness, palpitations, vomiting, abdominal pain, diarrhea, urinary changes. Denies history of cardiac disorder, syncope, or seizure. Physical Exam (per Admitting): General Appearance: WD/WN, no apparent distress, + pertinent finding (alert elderly male, lying in bed, no distress) Head: normocephalic, atraumatic Eyes: normal inspection, PERRL, EOMI ENT: hearing grossly normal, pharynx normal, + pertinent finding (no sign of thrush) Neck: supple, trachea midline Respiratory/Chest: lungs clear, normal breath sounds, no respiratory distress Cardiovascular: regular rate, rhythm, no murmur Abdomen/GI: normal bowel sounds, non tender, soft Extremities/Musculoskelatal: no calf tenderness, no pedal edema Neurologic/Psych: staking technician II-XII nml as tested, no motor/sensory deficits, alert , normal mood/affect, + pertinent finding (oriented to person, unable to state the date, states "either [facility] or [facility]" for location) Skin: normal color, warm/dry, + pertinent finding (suboccipital craniectomy incision healing well) Hospital Course SYNCOPE - admitted to tele - likely due to symptomatic bradycardia from beta michelle therapy; orthostasis from poor PO intake likely contributing as well - per [facility] - patient's HR was in the 40s at the time of the event; HR has remained > 50 while hospitalized and slowing increasing since labetalol has been stopped - orthostatic BPs negative - CT head negative for acute findings - no stenosis on carotid doppler - echo unremarkable - neuro consulted - EEG negative, no further recommendations - cardiology consulted - d/c'd labetalol and increased amlodipine for better blood pressure control HISTORY OF CEREBRAL HEMORRHAGE - 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 - continue Lovenox 30 mg SQ BID - full anticoagulation on hold due to recent cerebral hemorrhage HYPERTENSION - continue lisinopril and increased dose of amlodipine - labetalol discontinued due to bradycardia DEPRESSION - suspect this is contributing to patient's poor oral intake and lack of motivation with therapy - started on Lexapro ~ 1 week ago at [facility] - evaluated by mental health - no further recommendations at this time CKD STAGE III - renal functions remained stable THRUSH - switched nystatin to Mycelex Total time spent on discharge = 40 minutes This includes examination of the patient, discharge planning, medication reconciliation, and communication with other providers. 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 Instructions / Follow-Up Instructions / Follow-Up Follow up with physician at [facility]. Patient was admitted for evaluation of syncopal event. This was felt to be due to symptomatic bradycardia from beta michelle therapy. Heart rate improved once beta michelle was held and patient had no further syncopal events. He was evaluated by cardiology and neurology. Full discharge summary to follow. Current Hospital Diet Patient's current hospital diet: AHA Diet (Heart Healthy) Discharge Diet Recommended Diet: AHA Diet (Heart Healthy) Pending Studies Studies pending at discharge: no Medical Emergencies . Who to Call and When: Medical Emergencies: If at any time you feel your situation is an emergency, please call 911 immediately. . Non-Emergent Contact Non-Emergency issues call your: Primary Care Provider . . "Provider Documentation" section prepared by Jesica Garcia. VTE Core Measure Inpt VTE Proph given/why not?: Enoxaparin (Lovenox)SQ [facility]
[2016-10-05 15:18] VITALS: BP 142/85; PULSE 72; TEMP 36.7; O2SAT 98
--- NOTE | 2016-10-05 15:30 | Palliative Care Consultation ---
Consultation Date of Consultation: Oct 05, 2016. Requesting Physician: Dr. Faust Attending Physician: Dr. Gauthier; STACY Gardiner Reason for Consultation: Goals of care History of Present Illness This 76 year old male patient presented to the ED two days ago after an unresponsive episode at [facility]. The patient was recently hospitalized at [facility] from 09/05/16 to 09/13/16 for cerebral hemorrhage 2/2 anticoagulation by Coumadin s/p craniectomy and evacuation of hematoma. He was discharged to [facility]. Per record, the day of admission the patient c/o nausea after therapy, he was going to transfer from the wheelchair and became pale, cyanotic, and eventually unresponsive. His heart rate was in the 40s, resp rate 12, SpO2 89% on room air. A NRB mask placed and EMS brought patient to ED. By the time he arrived, he was alert but did not recall any of the events. CT of the head was negative for anything acute, CXR also negative. Cardiology saw patient and noted that he was on a very high dose of labetalol which was discontinued. Heart rate has improved, but patient indicated to Dr. Faust that he did not think he would want a pacemaker placed even if it was recommended. Patient has had some depression issues since his stroke, is now on Lexapro and was seen by psychiatry. [employer] Consultant requested palliative to meet with patient and family and discuss goals of care. I met with the patient, his Renate Valle, and his daughter Michelle Terrazas in the room. The patient denied any complaints of pain, discomfort or SOB. His only complaint is that he doesn't like the food here and that his legs are "shot." We talked about his current medical conditions, previous hemorrhagic stroke, and goals of care. The patient was very resistant and was making jokes during conversation, not focusing or really participating seriously. He said that the plan is to go back to [facility] for therapy and to get stronger. I asked about why he was not wanting to participate in therapy at [facility] prior to this admission. His only complaint was that the did not like their food either. I redirected patient back to therapy and what his goals/wishes are. He began to talk about his experience at his house when the bleeding in his brain started. He began to cry and was talking to his family about how scared he was, and about how frustrated he has been with his weakness. He wants to be able to get back home, but has been feeling depressed. However, since he has been started on Lexapro, he and his family do feel that his mood has improved tremendously. The patient and family had a very nice talk and opened up a lot about patient's recent events. After this, patient was much more willing to talk about his wishes. See plan below. Past Medical/Surgical History Medical History: Hypertension CKD stage III DVT/PE Hypercoagulable state 2/2 Coumadin Cerebral hemorrhage Surgical History: Hernia repair Filter placement Craniectomy and hematoma evacuation on 09/05/16 Social History Smoking Status: Never Smoker History of Alcohol Use: No Marital Status: Housing Status: other ([facility]) Occupation Status: retired Review of Systems Constitutional: + weakness (BL legs), No chills, No fever Respiratory: No cough, No dyspnea on exertion, No shortness of breath, No sputum Cardiac: + edema (improved at this time), No chest pain Abdomen: No nausea, No pain, No vomiting Male : No problem reported Neurologic: + problem reported (depressive symptoms improving) Allergies Coded Allergies: No Known Allergies (Unverified , 10/03/16) Medications Current Inpatient Medications Medications (Trade) Dose Ordered Sig/David Route Start Time Stop Time Status Last Admin Dose Admin Acetaminophen (Tylenol Tab) 650 mg Q4H PRN PO 10/03/16 18:00 11/02/16 17:59 Ondansetron HCl (Zofran Inj) 4 mg Q6H PRN IV 10/03/16 18:00 11/02/16 17:59 Bisacodyl (Dulcolax Supp) [address] 10/03/16 18:15 11/02/16 18:14 Docusate Sodium (coLACE CAP) 100 mg BID PO 10/03/16 21:00 11/02/16 20:59 10/05/16 08:20 100 MG Enoxaparin Sodium (Lovenox Inj) 30 mg BID SQ 10/03/16 22:00 11/02/16 21:59 10/05/16 08:21 30 MG Escitalopram Oxalate (Lexapro Tab) 5 mg QAM PO 10/04/16 09:00 11/03/16 08:59 10/05/16 08:20 5 MG Famotidine (Pepcid Tab) 20 mg QAM PO 10/04/16 09:00 11/03/16 08:59 10/05/16 08:20 20 MG Magnesium Hydroxide (Milk Of Magnesia Susp) 30 ml DAILY PRN PO 10/03/16 18:15 11/02/16 18:14 Senna/Docusate Sodium (Senokot S Tab) 1 tab DAILY PRN PO 10/03/16 18:15 11/02/16 18:14 Sodium Biphosphate/ Sodium Phosphate (Fleet Enema) [address] 10/03/16 18:15 11/02/16 18:14 Tamsulosin HCl (Flomax Cap) 0.4 mg QPM PO 10/03/16 21:00 11/02/16 20:59 10/04/16 20:36 0.4 MG Tramadol HCl (Ultram Tab) 50 mg Q6H PRN PO 10/03/16 18:15 11/02/16 18:14 Polyethylene (Miralax Powder Packet) 17 gm DAILY PRN PO 10/03/16 18:15 11/02/16 18:14 Miscellaneous (Iv Fluids Completed) 1 ea PRN PRN N/A 10/03/16 21:30 10/03/17 21:29 Lisinopril (Zestril Tab) 20 mg BID PO 10/04/16 21:00 11/03/16 20:59 10/05/16 08:21 20 MG Amlodipine Besylate (Norvasc Tab) 10 mg QAM PO 10/06/16 09:00 11/05/16 08:59 Clotrimazole 1 nicole 5XDQ4H MT 10/05/16 11:00 10/12/16 10:59 10/05/16 11:00 1 NICOLE Dexamethasone/ Nystatin/ Diphenhydramine HCl/Sucrose/ Microcrystalline Cellulose/Barcode (Decadron Conc Soln/Mycostatin Susp/Benadryl Syrup/Ora-Sweet Syrup/Ora-Plus Susp. Vehicle) QID PRN PO 10/05/16 11:00 11/04/16 10:59 Physical Exam Date Time Temp Pulse Resp B/P Pulse Ox O2 Delivery O2 Flow Rate FiO2 10/05/16 12:03 36.3 70 20 132/81 98 Room Air 10/05/16 12:00 Room Air 10/05/16 07:45 Room Air 10/05/16 07:41 36.5 62 18 146/86 96 Room Air 10/05/16 04:00 36.8 67 20 172/120 96 Room Air 10/05/16 04:00 96 Room Air 10/05/16 00:00 96 Room Air 10/04/16 23:31 36.8 61 20 148/85 95 Room Air 10/04/16 20:34 36.8 62 20 157/91 97 Room Air 10/04/16 20:30 Room Air 10/04/16 18:40 36.8 70 20 151/87 95 Room Air 10/04/16 16:00 Room Air 10/04/16 15:41 36.6 54 20 146/89 96 Room Air General Appearance: no apparent distress Neck: no JVD, trachea midline Respiratory: no respiratory distress, no accessory muscle use, + decreased breath sounds Cardiovascular: regular rate, rhythm, no edema, + normal peripheral pulses Abdomen: normal bowel sounds, non tender, soft Neurologic/Psychiatric: alert, normal mood/affect, oriented x 3 Laboratory Results Last 24 Hours Test 10/05/16 07:26 White Blood Count 6.58 K/uL Red Blood Count 4.64 M/uL Hemoglobin 13.8 g/dL Hematocrit 41.7 % Mean Corpuscular Volume 89.9 fL Mean Corpuscular Hemoglobin 29.7 pg Mean Corpuscular Hemoglobin Concent 33.1 g/dl RDW Standard Deviation 49.2 fL RDW Coefficient of Variation 15.0 % Platelet Count 120 K/uL Mean Platelet Volume 11.6 fL Sodium Level 143 mmol/L Potassium Level 3.8 mmol/L Chloride Level 108 mmol/L Carbon Dioxide Level 26 mmol/L Anion Gap 9.0 mmol/L Blood Urea Nitrogen 11 mg/dl Creatinine 1.50 mg/dl Est Creatinine Clear Calc Drug Dose 47.0 ml/min Estimated GFR () 51.7 Estimated GFR (Non- 44.6 BUN/Creatinine Ratio 7.4 Random Glucose 91 mg/dl Calcium Level 9.4 mg/dl Assessment & Plan Palliative Performance Scale: 50 % Problem list: Weakness Syncope 2/2 vasovagal vs. bradycardia vs. orthostasis History of cerebral hemorrhage s/p craniectomy with hematoma evacuation History of DVT/PE Depression CKD Stage III Thrush Goals of care (Z51.5) Palliative care plan: Discussed with patient, patient's Renate Valle, and daughter Michelle Terrazas. Goal is for patient to go back to [facility] to get his legs stronger so he is able to go back home with his . Prior to his hemorrhagic stroke, the patient and his state that he did very well caring for himself and ambulating and he'd like to restore as much of that strength as he can. The patient did admit to not wanting to participate in therapy last time he was there because he was frustrated with situation, but he now feels like he is ready to try again. If he is not successful at [facility] or is still not ready to go home after his stay there, the alternative plan would be to go to a SNF, preferably [place]. As far as further goals of care, patient states that he would like to avoid invasive procedures and surgeries if possible, but if they will give him good quality of life, he'd be willing to consider it (e.g. pacemaker). They patient has no living will, so I discussed and filled out a POLST form with the patient and family. It reads as follows: Full code, full treatment with additional order ,"Trial of full treatment, and if little chance of meaningful recovery, then allow natural and pursue comfort measures only," antibiotics if life can be prolonged, and trial period of IV hydration and artificial nutrition by tube. Patient states that he would not want long-term feeding by tube and would not want to live in a vegetative state. He chose his daughter, Michelle Terrazas, to be his surrogate decision maker in the case that he is unable to make decisions for himself. Copy of POLST on chart, original with patient. The patient denies any symptoms such as pain or SOB, so I have no further medication recommendations. Thank you kindly for this consult and allowing me to participate in his care.
[2016-10-05 15:33] VITALS: BP 142/85; PULSE 72; TEMP 36.7; O2SAT 98
[2016-10-06] MEDS ORDERED: AMLODIPINE BESYLATE 5 MG TAB PO SCH (09:00)
== END 2016-10-05 16:00 ==
LOC: ENRESERVTM → ENRESERVDT → EDBD 15:52 → C.EDA 15:56 → C.2T 17:56 → C.MED 10-04 18:49
PROVIDERS: ADMIT Internal Medicine; ATTEND Internal Medicine
DX: R55 Syncope and collapse (principal); B37.0 Candidal stomatitis; R00.1 Bradycardia, unspecified; R41.82 Altered mental status, unspecified; F32.9 Major depressive disorder, single episode, unspecified; N18.3 Chronic kidney disease, stage 3 (moderate); I12.9 Hypertensive chronic kidney disease with stage 1 through stage 4 chronic kidney disease, or unspecified chronic kidney disease; Z51.5 Encounter for palliative care; Z86.711 Personal history of pulmonary embolism; Z86.73 Personal history of transient ischemic attack (TIA), and cerebral infarction without residual deficits; Z98.890 Other specified postprocedural states